=== PATIENT | female | born 1950 | race Caucasian/White ===

== ENCOUNTER 2022-12-04 10:44 | Outpatient (CLI) | payer MEDICARE, BC, SELFPAY | END 2022-12-04 10:45 | disposition home or self-care (01) | PROVIDERS: PCP Internal Medicine; Visit Provider Internal Medicine | DX: E03.9 Hypothyroidism, unspecified (principal); E66.9 Obesity, unspecified; E78.5 Hyperlipidemia, unspecified; I10 Essential (primary) hypertension | CPT/HCPCS: 80061; 84443 ==

== ENCOUNTER 2022-12-15 10:54 | Outpatient (CLI) | payer MEDICARE, BC, SELFPAY | END 2022-12-15 10:55 | disposition home or self-care (01) | PROVIDERS: PCP Internal Medicine; Visit Provider Internal Medicine Nephrology | DX: E03.9 Hypothyroidism, unspecified (principal); E78.5 Hyperlipidemia, unspecified; I10 Essential (primary) hypertension; N18.4 Chronic kidney disease, stage 4 (severe); E66.9 Obesity, unspecified; F31.9 Bipolar disorder, unspecified; N25.81 Secondary hyperparathyroidism of renal origin; N32.81 Overactive bladder | CPT/HCPCS: 80061; 80069; 82310; 82728; 83540; 83550; 83970; 84156; 87086 ==

== ENCOUNTER 2023-03-17 16:07 | Emergency (ER) | payer MEDICARE, BC, SELFPAY ==
[2023-03-17] VITALS (7 sets, daily range): BP systolic 175–181; BP diastolic 85–91; PULSE 53–71; RESP 14; TEMP 36.7; O2SAT 94–100; BMI 34.8
--- NOTE | 2023-03-17 16:18 | ED_ITS ---
HPI - Chest Pain General Time Seen by Provider: 16:18 Date Seen: 03/17/23 Chief Complaint: Chest Pain Stated Complaint: Heartburn Time Seen by Provider: 03/17/23 16:09 Source: patient and RN notes reviewed Mode of arrival: ambulatory Limitations: no limitations History of Present Illness HPI narrative: This 72-year-old female is coming in with complaint of chest discomfort that is been bothering her for couple hours now. She tried some Mylanta at home. She is on omeprazole maybe over a month now for treatment of heartburn. She states her primary doctor Dr. Naranjo stated next step would be to do endoscopy. She notes if she actually gets up and moves around it feels a little better. Does not feel pleuritic in nature. Not short of breath. She maybe feels it into her back some. It is sharp at times. She is having no difficulty swallowing or dysphagia. She has not had any regurgitant symptoms. Outside of maybe standing up and moving around, she really has not noticed that anything makes it worse or better. She denies any history of any prior coronary/cardiac or pulmonary issues. No fevers. It sounds as if her dad maybe had bypass surgery. MD complaint: chest pain Related Data Home Medications Medication Instructions Recorded Confirmed acetaminophen 500 mg capsule 500 mg PO Q6H PRN 01/24/22 02/13/23 divalproex 250 mg tablet,delayed 1,000 mg PO .hs 01/24/22 02/13/23 release (Depakote) buspirone 10 mg tablet 10 mg PO BID 12/04/22 02/13/23 quetiapine 200 mg tablet 250 mg PO .hs 02/13/23 02/13/23 Previous Rx's Medication Instructions Recorded oxybutynin chloride 5 mg 5 mg PO QDAY #90 tabs 12/04/22 tablet,extended release 24 hr atorvastatin 10 mg tablet 10 mg PO .Bedtime #90 tabs 12/05/22 levothyroxine 50 mcg tablet 50 mcg PO DAILY #90 tabs 12/05/22 polyethylene glycol 3350 17 17 g PO BID #1,020 grams 12/11/22 gram/dose oral powder amlodipine 5 mg tablet 5 mg PO DAILY #90 tabs 02/21/23 omeprazole 20 mg capsule,delayed 20 mg PO QAM #90 caps 02/26/23 release Allergies Allergy/AdvReac Type Severity Reaction Status Date / Time No Known Allergies Allergy Unverified 02/13/23 09:29 Review of Systems Status of ROS Reports: 6 or more systems reviewed and unremarkable except as noted in History and below PFSH PFS Surgical History History of repair of rectocele ?Z98.890 - Other specified postprocedural states (ICD-10) Family History Father Heart disease Pancreatic cancer Depression Sister Breast cancer Bipolar 1 disorder Brother Depression Social History What is your current living situation?: I presently have a place to live Problems where you live: no known problems In the past 12 months, utilities in danger of being shut off: no In the past 12 mos, have been you worried that your food would run out before you had money to buy more?: never true In the past 12 mos, the food you bought just didn't last and you didn't have money to buy more?: never true Smoking Status: Never smoker Do you use any of these nicotine containing products: None How often do you have a drink containing alcohol: never AUDIT-C Alcohol total score: 0 How often does anyone, including family, friends and others, physically hurt you : How often does anyone, including family, friends and others, insult or talk down to you: How often does anyone, including family, friends and others, threaten you with harm: How often does anyone, including family, friends and others, scream or curse at you: Little interest or pleasure in doing things: not at all Feeling down, depressed, or hopeless: not at all Exam Const Vital Signs, click to edit/add: Vital Signs - 24 hr 03/17/23 16:11 03/17/23 16:25 03/17/23 17:02 Temperature 98.0 F Pulse Rate 53 L Pulse Rate [Pulse Oximeter] 63 Respiratory Rate 14 14 Blood Pressure 175/85 H Blood Pressure [Right Upper Arm] 181/91 H Pulse Oximetry 98 100 97 Oxygen Delivery Method Room Air 03/17/23 17:15 03/17/23 18:00 10/07/23 18:30 Temperature Pulse Rate 62 60 71 Pulse Rate [Pulse Oximeter] Respiratory Rate Blood Pressure Blood Pressure [Right Upper Arm] Pulse Oximetry 94 94 96 Oxygen Delivery Method 03/17/23 18:45 Temperature Pulse Rate 70 Pulse Rate [Pulse Oximeter] Respiratory Rate Blood Pressure Blood Pressure [Right Upper Arm] Pulse Oximetry 95 Oxygen Delivery Method 72-year-old female is alert, interactive, no apparent distress. Able to speak in complete sentences, no tachypnea. Sclera clear, conjugate gaze. Symmetrical facial function. Neck is supple, no palpable masses, do not note any jugular venous distension. Lungs are clear, good air entry, no wheezing or crackles. CV regular rate and rhythm, no murmur, normal S1 and S2. No palpable chest wall tenderness, no reproducible chest wall tenderness. Abdomen is soft, no rebound or guarding, no organomegaly cannot reproduce any pain on palpation. Note she does point to the anterior center chest up and down the chest where she is feeling her symptoms. Note no lower extremity edema. Patient was ambulatory in the ED of her own accord. No focal neurologic exam noted. Documenting provider has reviewed patient's vital signs: yes Course Course ED Course: Reviewed with patient that outside of esophageal in GI symptoms, there muscles, lungs/pleura, cardiac structures as well as vessels in the chest. Ischemic changes, dissection, pulmonary emboli, respiratory infections as well as referred pain into the chest from esophageal or GI issues are all possibilities. We will start with a point of care troponin, reviewed with patient we should know that back within about 10-15 minutes. If that is negative, will likely give her IV Protonix and some simethicone. We do not have viscous lidocaine to make a GI cocktail. Reevaluation(s) Time of Reevaluation #1: 18:05 Reevaluation #1: Patient is feeling much better. Reviewed that we still should check a 2nd troponin which will do now. She does remain mildly hypertensive but she has chronic kidney disease. With her lipase just being very slightly elevated and the rest of her liver functions normal, having improvement with the Protonix and simethicone, do not recommend doing any CT imaging with IV contrast. Highly doubt that this is anything like dissection. We will do a repeat troponin at this time. Time of Reevaluation #2: 18:14 Reevaluation #2: Did go back and review with patient that we were going to do a CT of her abdomen pelvis if she was in agreement. She did complain of some middle to upper back pain with this and she was still feeling that somewhat. When I was reviewing her family history, saw that her dad had pancreatic cancer. With her lipase just being ever so slightly elevated, do think we really should look at her pancreas on imaging. Given her chronic kidney disease cannot do so with IV contrast but will do a noncontrast CT. Time of Reevaluation #3: 19:30 Reevaluation #3: Have reviewed with patient that there is nothing definitive on the CT. It is limited by the fact we could not do contrast but would anticipate that if she had some type pancreatic lesion causing this much symptoms that we should still see it, would expect that it might be larger. She at this time is feeling much better. We are going to have her follow up with her primary, consider getting the EGD scheduled in a further workup. At this time she did bring up to me that over the last month she has been feeling like she has been having menstrual c ramps. Did review with her that the CT of the pelvis was done but imaging of pelvic organs really is better defined by ultrasound. At this time I do not feel that this needs to be done emergently. Do ask that she talks to her primary about this at follow-up. Vital Signs Vital signs: Initial Vital Signs Temperature 98.0 F 03/17/23 16:11 Temperature Source Temporal Artery Scan 03/17/23 16:11 Pulse Rate 63 03/17/23 16:11 Pulse Rhythm Regular 03/17/23 16:11 Respiratory Rate 14 03/17/23 16:11 Blood Pressure 181/91 H 03/17/23 16:11 Blood Pressure Mean 121 H 03/17/23 16:11 Blood Pressure Position Sitting 03/17/23 16:11 Pulse Oximetry 98 03/17/23 16:11 Oxygen Delivery Method Room Air 03/17/23 16:11 Vital Signs Temperature 98.0 F 03/17/23 16:11 Pulse Rate 63 03/17/23 16:11 Respiratory Rate 14 03/17/23 16:11 Blood Pressure 181/91 H 03/17/23 16:11 Pulse Oximetry 98 03/17/23 16:11 Oxygen Delivery Method Room Air 03/17/23 16:11 Temperature 98.0 F 03/17/23 16:11 Pulse Rate 70 03/17/23 18:45 Respiratory Rate 14 03/17/23 17:02 Blood Pressure 175/85 H 03/17/23 17:02 Pulse Oximetry 95 03/17/23 18:45 Oxygen Delivery Method Room Air 03/17/23 16:11 MDM - Chest Pain Lab Data Attestation: I reviewed the patient's lab results. Labs: Lab Results 03/17/23 03/17/23 Range/Units 16:25 18:12 WBC 4.69 (4.50-11.00) K/uL RBC 4.02 (4.00-5.20) m/uL Hgb 11.9 L (12.0-16.0) gm/dL Hct 36.8 (33.0-51.0) % MCV 92 (80-100) fL MCH 30 (26-34) pg MCHC 32 (32-36) gm/dL RDW Coeff of Yaneth 14.2 (11.5-15.5) % Plt Count 162 (140-440) K/uL Neut % (Auto) 71.6 (42.0-72.0) % Lymph % (Auto) 13.6 L (20-44) % [place] % (Auto) 12.4 H (0.0-11.0) % Eos % (Auto) 1.1 (0.0-7.0) % Baso % (Auto) 0.4 (0.0-3.0) % Neut # (Auto) 3.36 (1.7-7.0) K/uL Lymph # (Auto) 0.60 L (0.90-2.90) K/uL [place] # (Auto) 0.60 (0.00-0.90) K/UL Eos # (Auto) 0.05 (0.00-0.50) K/uL Baso # (Auto) 0.02 (0.00-0.30) K/uL Abs Immat Gran (auto) 0.04 (0.00-0.30) K/uL Imm/Tot Granulo (auto) 0.9 % D-Dimer Quant (PE/DVT) 0.35 (0.00-0.50) ug/ml Sodium 141 (135-149) mmol/L Potassium 4.0 (3.6-5.1) mmol/L Chloride 107 (96-114) mmol/L Carbon Dioxide 22 (20-32) mmol/L Anion Gap 12 (7-15) mEq/L BUN 33 H (7-30) mg/dL Creatinine 2.6 H (0.5-1.5) mg/dL Estimated Creat Clear 15.01 Estimated GFR 19 ml/min Glucose 92 (60-115) mg/dL Lactate 1.0 (0.5-1.9) mmol/L Calcium 9.5 (8.4-10.6) mg/dL Magnesium 2.1 (1.5-2.6) mg/dL Total Bilirubin 0.4 (0.1-1.5) mg/dL AST 27 (12-35) U/L ALT 17 (4-35) U/L Alkaline Phosphatase 63 (40-150) U/L C-Reactive Protein 2.3 H (0.5-1.0) mg/dL NT-Pro-B Natriuret Pep 193 pg/mL Total Protein 7.8 (6.0-8.3) g/dL Albumin 4.5 (3.3-5.0) g/dL Lipase 310 H (23-300) U/L POC Troponin I 0.00 L 0.00 L (0.01-0.04) ng/ml Imaging Data Chest x-ray: Attestation: I have reviewed the pertinent imaging results. Radiologist's impression: Patient: MADISON COLEMAN Facility:?[facility] Patient ID:?[id number] Site Patient ID:?[id number]. Site :?[id number] Study:?XRay Chest PORTABLE-03/17/2023 4:45:50 PM Ordering Physician:?Chaim Webb Final Report: INDICATION: Chest pain. COMPARISON: None. TECHNIQUE: Portable AP chest. FINDINGS: Elevated diaphragms bilateral with underlying dilated bowel. Normal size cardiac silhouette. Clear lung jeffrey. IMPRESSION: 1. Elevated diaphragms with underlying dilated bowel. 2. No acute pathology with on the chest radiograph. Dictated by Wilton Barajas MD @ 03/17/2023 5:01:59 PM (Electronic Signature) CT scan - abdomen: Attestation: I have reviewed the pertinent imaging results. Radiologist's impression: Patient: MADISON COLEMAN Facility:?[facility] Patient ID:?[id number] :?1950 Study:?CT Abdomen/Pelvis W/O-03/17/2023 6:33:16 PM Ordering Physician:Margaret Webb Final Report: INDICATION: Epigastric/chest pain, radiates into back. COMPARISON: None available TECHNIQUE: CT of the abdomen and pelvis without intravenous contrast per routine renal stone protocol. FINDINGS: No renal or ureteral calculi. No hydronephrosis or ureterectasis. No urinary bladder calculi. Small left renal lesions. The small renal cyst. Non-contrast examination significantly limits evaluation of solid organs and intravascular structures. Non cirrhotic appearing liver. Small liver cysts and low-attenuation lesions that are too small to characterize. No gallbladder distention. No splenomegaly. No suspicious peripancreatic fluid collection. Adrenal glands appear unremarkable. No bowel obstruction. No obvious abnormality involving the urinary bladder, uterus or the adnexa. No free air or free fluid. No suspicious incidental adenopathy. Coronary artery calcifications. Linear opacities in the lung bases represent minor atelectasis. No pleural effusion. IMPRESSION: No renal or ureteral calculi. No hydronephrosis. Please note that all CT scans at this facility use dose modulation, iterative reconstruction, and/or weight-based dosing when appropriate to reduce radiation dose to as low as reasonably achievable. Dictated by Miguel Sullivan MD @ 03/17/2023 7:20:50 PM (Electronic Signature) ECG Data Attestation: I personally reviewed and interpreted this ECG as follows: (Sinus rhythm with sinus arrhythmia, 60 beats per minute. Bifascicular block. LVH by voltage criteria. QT corrected 444 milliseconds.) ECG interpretation date: 03/17/23 Discharge Plan Discharge Clinical Impression: GERD (gastroesophageal reflux disease), Chest pain Patient Disposition: Home, Self-Care Condition: Stable Instructions: Chest Pain (ED), GERD (Gastroesophageal Reflux Disease) (ED), Noncardiac Chest Pain (ED) Additional Instructions: Increase your omeprazole to 40 mg daily, this will be [address] Naranjo tomorrow in see if you can get the EGD scheduled. I would also like you to get a follow-up appointment with her within the next week for re-evaluation. If at any point your pain is significantly worsening, have new or concerning symptoms in the interim, please seek re-evaluation. Activity Level: Activity as Tolerated Prescriptions: No Action divalproex [Depakote] 250 mg tablet,delayed release (DR/EC) 1,000 mg PO .hs acetaminophen 500 mg capsule 500 mg PO Q6H PRN quetiapine 200 mg tablet 250 mg PO .hs buspirone 10 mg tablet 10 mg PO BID oxybutynin chloride 5 mg tablet extended release 24hr 5 mg PO QDAY Qty: 90 3RF levothyroxine 50 mcg tablet 50 mcg PO DAILY Qty: 90 3RF atorvastatin 10 mg tablet 10 mg PO .Bedtime Qty: 90 3RF polyethylene glycol 3350 17 gram/dose powder 17 g PO BID Qty: 1020 11RF amlodipine 5 mg tablet 5 mg PO DAILY Qty: 90 2RF omeprazole 20 mg capsule,delayed release(DR/EC) 20 mg PO QAM Qty: 90 2RF Follow Up/Referrals: Skylar Naranjo MD [Primary Care Provider] - Stand Alone Forms: [facility] Info Instructions
--- NOTE | 2023-03-17 16:32 | CRLHL7_ITS ---
For Patients: As a result of the Cures Act, medical imaging exams and procedure reports are released immediately into your electronic medical record. You may view this report before your referring provider. If you have questions, please contact your health care provider. INDICATION: Chest pain. COMPARISON: None. TECHNIQUE: Portable AP chest. FINDINGS: Elevated diaphragms bilateral with underlying dilated bowel. Normal size cardiac silhouette. Clear lung jeffrey. IMPRESSION: 1. Elevated diaphragms with underlying dilated bowel. 2. No acute pathology with on the chest radiograph. Dictated by Wilton Barajas MD @ 03/17/2023 5:01:59 PM (Electronically Signed)
[2023-03-17 16:50] LABS: Basophils Absolute Auto 0.02 K/uL (0.00-0.30); Basophils Percent Auto 0.4 % (0.0-3.0); Eosinophils Absolute Auto 0.05 K/uL (0.00-0.50); Eosinophils Percent Auto 1.1 % (0.0-7.0); Hematocrit 36.8 % (33.0-51.0); Hemoglobin* 11.9 gm/dL (12.0-16.0); Immature Granulocytes Abs Auto 0.04 K/uL (0.00-0.30); Immature Granulocytes Pct Auto 0.9 %; Lymphocytes Percent Auto 13.6 % (20-44); Mean Corpuscular HGB Conc 32 gm/dL (32-36); Mean Corpuscular Hemoglobin 30 pg (26-34); Mean Corpuscular Volume 92 fL (80-100); Monocytes Percent Auto 12.4 % (0.0-11.0); Neutrophils Absolute Auto 3.36 K/uL (1.7-7.0); Neutrophils Percent Auto 71.6 % (42.0-72.0); Platelet Count* 162 K/uL (140-440); RDW Coefficient of Variation % 14.2 % (11.5-15.5); Red Blood Count 4.02 m/uL (4.00-5.20); White Blood Count* 4.69 K/uL (4.50-11.00)
[2023-03-17 16:54] LABS: Slide Review Reflex No
[2023-03-17 16:59] LABS: Albumin* 4.5 g/dL (3.3-5.0); Chloride* 107 mmol/L (96-114)
[2023-03-17 17:00] LABS: Sodium* 141 mmol/L (135-149)
[2023-03-17 17:02] LABS: Bilirubin Total* 0.4 mg/dL (0.1-1.5); Creatinine* 2.6 mg/dL (0.5-1.5); Est. Creatinine Clearance* 15.01; Estimated Glomerular Filt Rate 19 ml/min
[2023-03-17] MEDS: PANTOPRAZOLE SODIUM 40 MG INJ IVP (17:02)
[2023-03-17 17:03] LABS: Alanine Aminotransferase* 17 U/L (4-35); Alkaline Phosphatase* 63 U/L (40-150); Anion Gap 12 mEq/L (7-15); Aspartate Amino Transferase* 27 U/L (12-35); Blood Urea Nitrogen* 33 mg/dL (7-30); Calcium* 9.5 mg/dL (8.4-10.6); Carbon Dioxide* 22 mmol/L (20-32); Glucose* 92 mg/dL (60-115); Lipase* 310 U/L (23-300); Magnesium* 2.1 mg/dL (1.5-2.6); Total Protein* 7.8 g/dL (6.0-8.3)
[2023-03-17 17:05] LABS: C Reactive Protein* 2.3 mg/dL (0.5-1.0)
[2023-03-17 17:10] LABS: D Dimer Quantitative* 0.35 ug/ml (0.00-0.50)
[2023-03-17 17:13] LABS: NT Pro B Type NatriureticPept* 193 pg/mL
[2023-03-17] MEDS: SIMETHICONE 80 MG TAB.CHEW PO (17:17)
--- NOTE | 2023-03-17 18:11 | CRLHL7_ITS ---
For Patients: As a result of the Century Cures Act, medical imaging exams and procedure reports are released immediately into your electronic medical record. You may view this report before your referring provider. If you have questions, please contact your health care provider. INDICATION: Epigastric/chest pain, radiates into back. COMPARISON: None available TECHNIQUE: CT of the abdomen and pelvis without intravenous contrast per routine renal stone protocol. FINDINGS: No renal or ureteral calculi. No hydronephrosis or ureterectasis. No urinary bladder calculi. Small left renal lesions. The small renal cyst. Non-contrast examination significantly limits evaluation of solid organs and intravascular structures. Non cirrhotic appearing liver. Small liver cysts and low-attenuation lesions that are too small to characterize. No gallbladder distention. No splenomegaly. No suspicious peripancreatic fluid collection. Adrenal glands appear unremarkable. No bowel obstruction. No obvious abnormality involving the urinary bladder, uterus or the adnexa. No free air or free fluid. No suspicious incidental adenopathy. Coronary artery calcifications. Linear opacities in the lung bases represent minor atelectasis. No pleural effusion. IMPRESSION: No renal or ureteral calculi. No hydronephrosis. Please note that all CT scans at this facility use dose modulation, iterative reconstruction, and/or weight-based dosing when appropriate to reduce radiation dose to as low as reasonably achievable. Dictated by Miguel Sullivan MD @ 03/17/2023 7:20:50 PM (Electronically Signed)
--- NOTE | 2023-03-17 18:59 | ED.NURSE ---
Report given KENDAL Dickson.
== END 2023-03-17 19:46 | disposition home or self-care (01) ==
PROVIDERS: Emergency Provider Family Medicine; PCP Internal Medicine
DX: R07.9 Chest pain, unspecified (principal); K21.9 Gastro-esophageal reflux disease without esophagitis
CPT/HCPCS: 36415; 71045; 74176; 80053; 83605; 83690; 83735; 83880; 84484; 85025; 85379; 86140; 93005; 94761; 96374; 99284; 99285; A9270; C9113

== ENCOUNTER 2023-04-02 10:33 | Outpatient (CLI) | payer MEDICARE, BC, SELFPAY ==
--- NOTE | 2023-04-02 12:04 | W.ANESCHARGE ---
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
== END 2023-04-02 10:34 | disposition home or self-care (01) ==
LOC: OP CLINIC 10:33
PROVIDERS: PCP Internal Medicine; Visit Provider Internal Medicine
DX: R12 Heartburn (principal)
CPT/HCPCS: 00731; 43239; 88305; 99100; J2704

== ENCOUNTER 2023-08-21 08:51 | Outpatient (CLI) | payer MEDICARE, BC, SELFPAY | END 2023-08-21 08:52 | disposition home or self-care (01) | LOC: NFLDREF 08-22 07:19 | PROVIDERS: PCP Internal Medicine; Referring Provider Internal Medicine; Visit Provider Internal Medicine Nephrology | DX: E78.5 Hyperlipidemia, unspecified (principal); I12.9 Hypertensive chronic kidney disease with stage 1 through stage 4 chronic kidney disease, or unspecified chronic kidney disease; N18.4 Chronic kidney disease, stage 4 (severe); N25.81 Secondary hyperparathyroidism of renal origin | CPT/HCPCS: 80061; 80069; 82043; 82306; 82310; 82570; 82728; 83540; 83550; 83970; 84450; 84460; 84550 ==

== ENCOUNTER 2023-12-04 08:50 | Outpatient (CLI) | payer MEDICARE, BC, SELFPAY ==
--- OUTSIDE RECORDS SUMMARY | 2023-12-07 08:44 | XMS_ITS | Clinical Summary ---
Author Organization [facility] Address [address] [place] [address] Care Team Providers Care Casting Operator Helper Name Role Phone Elsewhere, Pcp Primary Care Provider Unavailabl e Source Comments Patient records contain information from all sites at [facility]. For routine questions regarding patient records, call [phone] during business hours, M-F 8:00 AM - 5:00 PM Central Time. Record requests for emergency care only can be directed to [phone] at any time.[facility] Allergies Active Allergy Reactions Criticality Noted Date Comments No Known Allergies Other (see comments) 010 Cerner listed no reactions Medications Medication Sig Dispensed Refills Start Date End Date Status MULTIVITAMIN ORAL Take 1 tablet by mouth daily. 10/20/2009 Active acetaminophen (TYLENOL EXTRA STRENGTH) 500 mg tablet Take 1 tablet by mouth as needed. 05/16/2017 Active amLODIPine (NORVASC) 5 mg tabletIndications:Hy pertension And Chronic Kidney Disease Stage 4 Take 1 tablet (5 mg total) by mouth daily. 90 tablet 3 06/08/2021 Active QUEtiapine (SEROquel) 100 mg tabletIndications:Bi polar I Disorder (HCC) TAKE 2 TABLETS (200 MG) BY MOUTH AT BEDTIME. 180 tablet 08/12/2021 Active atorvastatin (LIPITOR) 10 mg tabletIndications:Hy percholesterolemia TAKE ONE TABLET BY MOUTH EVERY DAY 90 tablet 3 08/31/2021 Active divalproex (DEPAKOTE ER) 250 mg 24 hr tabletIndications:Bi polar I Disorder (HCC) TAKE 4 TABLETS (1,000 MG) BY MOUTH DAILY. 360 tablet 3 08/31/2021 Active levothyroxine (SYNTHROID, LEVOTHROID) 50 mcg tabletIndications:Hy pothyroidism Primary TAKE ONE TABLET BY MOUTH EVERY DAY 90 tablet 3 08/31/2021 Active polyethylene glycol (MIRALAX) 17 gram/dose oral powderIndications:Co nstipation MIX 17GMS IN 80Z OF LIQUID AND DRINK TWICE DAILY 1530 g 3 10/10/2021 Active Active Problems Problem Noted Date Diagnosed Date Obesity Body Mass Index 30-39.9 Adult 05/26/2021 Chronic Kidney Disease Stage 4 Glomerular Filtration Rate 15-29 05/26/2020 Hyperparathyroidism Renal Secondary 05/26/2020 Hypercholesterolemia 04/21/2019 Anemia Of Chronic Renal Disease 10/23/2018 Constipation 04/10/2018 Hypertension And Chronic Kidney Disease Stage 4 05/30/2017 Last Assessment & Plan: Referral to Nephrology 04/23/2018 Hypothyroidism Primary 05/30/2017 Bipolar I Disorder 05/16/2017 Resolved Problems Problem Noted Date Diagnosed Date Resolved Date Atrophy Vagina Due To Estrogen Deficiency 12/26/2018 04/22/2019 Fatigue 05/30/2017 04/10/2018 Bipolar Disorder 08/10/2016 04/10/2018 Overview: Bipolar Disorder NOS Anxiety Generalized Disorder 07/19/2016 04/17/2018 Chronic Kidney Disease Stage 3 Glomerular Filtration Rate 30 To 59 02/17/2016 04/22/2019 Overview: Chronic Renal Failure Stage III GFR 30-59 Hypertension 10/21/2009 05/30/2017 Overview: HTN [Hypertension] Immunizations Name Administration Dates Next Due DT, Pediatric 11/24/2003 Influenza high dose QV(65 ye ars or older) (PF) 03/11/2021,02/12/2020 Influenza, Unspecified 03/29/2016,2012,03/24/2010,2008,04/26/2005 PCV13 11/04/2014 PPSV23 10/31/2016 RZV (SHINGRIX) 02/12/2020,04/15/2019 Td (Adult), adsorbed 11/24/2003 Tdap 11/04/2014 influenza high dose (65 year s or older) (PF) 04/15/2019,04/02/2018 Family History Medical History Relation Name Comments Heart disease Father Pancreatic cancer Father Breast cancer Sister Relation Name Status Comments Father (Age 89) pancreatic cancer Mother (Age 90) natural Sister Social History Tobacco Use Types Packs/Day Years Used Date Smoking Tobacco: Never Smokeless Tobacco: Never Alcohol Use Standard Drinks/Week Comments Yes 1 (1 standard drink = 0.6 oz pur e alcohol) Humiliation, Afraid, Rape, and Kick questionnair e Answer Date Recorded Within the last year, have y ou been afraid of your partner or ex-partner? No 06/06/2021 Within the last year, have y ou been humiliated or emotionally abused in other ways by your partner or ex-partner? No Within the last year, have y ou been kicked, hit, slapped, or otherwise physically hurt by your partner or ex-partner? No 06/06/2021 Within the last year, have y ou been raped or forced to have any kind of sexual activity by your partner or ex-partner? No 06/06/2021 Social Connection and Isolat ion Panel [NHANES] Answer Date Recorded In a typical week, how many times do you talk on the phone with family, friends, or neighbors? More than three times a week 06/06/2021 How often do you get togethe r with friends or relatives? More than three times a week 06/06/2021 How often do you attend chur ch or adventist services? 1 to 4 times per year 06/06/2021 Do you belong to any clubs o r organizations such as hoahaoism groups, unions, fraternal or athletic groups, or school groups? Yes 06/06/2021 How often do you attend meet ings of the clubs or organizations you belong to? 1 to 4 times per year 06/06/2021 Are you , , di vorced, , never , or living with a partner? 06/06/2021 AUDIT-C Answer Date Recorded Q1: How often do you have a drink containing alc ohol? 2-4 times a month 06/06/2021 Q2: How many drinks containi ng alcohol do you have on a typical day when you are drinking? 1 or 2 06/06/2021 Q3: How often do you have si x or more drinks on one occasion? Never 06/06/2021 Overall Financial Resource Strain (CARDIA) Answe r Date Recorded How hard is it for you to pa y for the very basics like food, housing, medical care, and heating? Not hard at all 06/06/2021 PHQ-2 Answer Date Recorded PHQ-2 Score 0 05/26/2021 [facility] - Occupational Stress Questionnaire Answer Date Recorded Do you feel stress - tense, restless, nervous, or anxious, or unable to sleep at night because your mind is troubled all the time - these days? Not at all 06/06/2021 Exercise Vital Sign Answer Date Recorde d On average, how many days pe r week do you engage in moderate to strenuous exercise (like a brisk walk)? 3 days 06/06/2021 On average, how many minutes do you engage in exercise at this level? 20 min 06/06/2021 Hunger Vital Sign Answer Date Recorded Within the past 12 months, y ou worried that your food would run out before you got the money to buy more. Never true 06/06/20 21 Within the past 12 months, t he food you bought just didn't last and you didn't have money to get more. Never true 06/06/2021 PRAPARE - Transportation Answer Date Re corded In the past 12 months, has l ack of transportation kept you from medical appointments or from getting medications? No 05/12 In the past 12 months, has l ack of transportation kept you from meetings, work, or from getting things needed for daily living? No 06/06/2021 Housing Stability Vital Sign Answer Elias e Recorded In the last 12 months, was t here a time when you were not able to pay the mortgage or rent on time? No 06/06/2021 In the last 12 months, how many places have you lived? 1 06/06/2021 In the last 12 months, was t here a time when you did not have a steady place to sleep or slept in a mcfp (including now)? No 06/06/2021 Nutrition Answer Date Recorded Nutrition: EVOO Fat Source No 06/06 On average, how many serving s of fruits and vegetables do you eat per day (serving size is equal to 1 cup or approximately the size of a tennis ball)? 6-7 06/06/2021 Dental Answer Date Recorded Dental: Regular Dentist Yes 11/29/19 Employment Answer Date Recorded Employment status Retired 06/06/2021 Education Answer Date Recorded What is the highest level of school you have completed or the highest degree you have received? Master's degree (e.g., MA, MS, Stacey, MEd, RECRUITMENT INTERN, MARTHA) 04/18/2019 Sex and Gender Information Value Date Recorded Sex Assigned at Female 06/06/2021 10:52 AM OIL DEVELOPER Gender Identity Female 05/30/2017 9:25 AM OIL DEVELOPER Sexual Orientation Straight 05/30/2017 9: 25 AM OIL DEVELOPER Last Filed Vital Signs Vital Sign Reading Time Taken Comments Blood Pressure 138/88 08/27/2023 1:31 PM CDT Pulse 76 08/27/2023 1:31 PM CDT Temperature 36.5 ??C (97.7 ??F) 06/09/2021 9:41 AM CS T Respiratory Rate 16 05/26/2021 10:37 AM OIL DEVELOPER Oxygen Saturation - - Inhaled Oxygen Concentration - - Weight 89.4 kg (197 lb 1.5 oz) 08/27/2023 1:31 P M CDT Height 157 cm (5' 1.81) 08/27/2023 1:31 PM CDT Body Mass Index 36.27 08/27/2023 1:31 PM CDT Plan of Treatment Health Maintenance Due Date Last Done Comments CT Colonography 1950 Hepatitis C Screening 1950 Colonoscopy 11/27/2019 11/26/2014, 02/27/2003 Mammogram 05/27/2021 05/27/2020, 04/11, 04/23/2018, Additional history exists Thyroid Stimulating Hormone (TSH) test for thyroid function 04/26/2022 04/26/2021, 05/24/2020, 04/21/2019, Additional history exists Cologuard 06/05/2023 06/05/2020, 06/01/2020 Colorectal Cancer Surveillance 06/05/2023 Depression Screening (Annual PHQ-2) 06/11/2023 Fall Risk Screen (Annual) 06/11/2023 Office Visit for Blood Press ure Check / Re-check 08/26/2024 08/27/2023 DTaP,Tdap,and Td Vaccines (4 - Td or Tdap) 11/04/2024 11/04/2014, 11/24/2003, 11/24/2003 Fasting Glucose for Diabetes Screening 08/22/2025 08/22/2022, 06/08/2021, 04/26/2021, Additional history exists Lipid (Cholesterol) Screening 12/19/2027, 08/22/2022, 12/19/2021, Additional history exists Pneumococcal vaccine (65+ years) Completed 11/01/19 17, 11/04/2014 Zoster Vaccines Completed 02/12/2020, 04/15/2019 Influenza Vaccine Completed 03/08/2023, , 03/11/2021, Additional history exists COVID-19 Vaccine Completed 12/06/2023, 11/2022, 03/16/2023, Additional history exists Procedures Procedure Name Priority Date/Time Associated Diagnosis Comments EXTI LIPID PANEL W REFLEX MEASURED LDL Routine 12/18/2022 9:10 AM CDT RENAL FUNCTION PANEL, S Routine 08/22/2022 9:50 AM CDT Hypertension And Chronic Kidney Disease Stage 4 (HCC) Anemia Of Chronic Renal Disease Hyperparathyroidi sm Renal Secondary (HCC) THYROID-STIMULATI NG HORMONE-SENSITIVE (S-TSH) Routine 04/26/2021 10:11 AM OIL DEVELOPER Hypothyroidism COLOGUARD Routine 06/01/2020 9:30 AM OIL DEVELOPER Screening Cancer Colon BI BREAST SCREENING BILATERAL RAD - Routine (most inpatients and all outpatients) 05/27/2020 9:50 AM OIL DEVELOPER Screening Mammogram Breast Cancer from Last 3 Months or Most Recently Relevant to Health Maintenance Results * (ABNORMAL) Renal Function Panel (08/22/2022 9:50 AM CDT) Potassium, P 5.0 3.6 - 5.2 mmol/L 08/22/2022 11:37 AM CDT OWAT Sodium, P 142 135 - 145 mmol/L 08/22/2022 11:37 AM CDT OWAT Chloride, P 105 98 - 107 mmol/L 08/22/2022 11:37 AM CDT OWAT Bicarbonate, P 24 22 - 29 mmol/L 08/22/2022 11:37 AM CDT OWAT Anion Gap, P 13 7 - 15 08/22/2022 11:37 AM CDT OWAT BUN (Blood Urea Nitrogen), P 31(H) 6 - 21 mg/dL 08/22/2022 11:37 AM CDT OWAT Creatinine 2.13(H) 0.59 - 1.04 mg/dL 08/22/2022 11:37 AM CDT OWAT Estimated GFR (eGFR) 24(L) >=60 mL/min/BSA 08/22/2022 11:37 AM CDT OWAT Comment: Estimated GFR calculated using the 2020 CKD_EPI creatinine equation. Calcium, Total, P 10.1 8.8 - 10.2 mg/dL 08/22/2022 11:37 AM CDT OWAT Glucose, P 93 70 - 140 mg/dL 08/22/2022 11:37 AM CDT OWAT Albumin, P 4.3 3.5 - 5.0 g/dL 08/22/2022 11:37 AM CDT OWAT Phosphorus (Inorganic), P 2.9 2.5 - 4.5 mg/dL 08/22/2022 4:08 PM CDT AUST Blood (Blood, Venous) 08/22/2022 9:50 AM CDT 08/22/2022 11:07 AM CDT [facility] - 08/22/2022 4:08 PM CDT Specimen Information: Specimen ID: [id number] Specimen Type: Blood Specimen Collection Start Date: 08/22/2022 ??9:50 AM Specimen Received Date: 08/22/2022 11:07 AM Specimen ID: [id number] Specimen Type: Blood Specimen Collection Start Date: 08/22/2022 ??9:50 AM Specimen Received Date: 08/22/2022 ??3:50 PM Jairo Hutton Jr.O. LAB BLOOD AD D-ON [facility] [address] [place] [address], [facility] OWAT [facility] [place] [address] [place] [address] A[facility] [address] [place] [address] * S-TSH (Thyroid-Stimulating Hormone - Sensitive) (04/26/2021 10:11 AM OIL DEVELOPER) TSH, Sensitive 1.6 0.3 - 4.2 mIU/L 04/26/2021 2:09 PM OIL DEVELOPER OWAT Blood (Blood, Venous) 04/26/2021 10:11 AM OIL DEVELOPER 04/26/2021 1:02 PM OIL DEVELOPER Carey Arriaga APRN C.N.P., R.N. LAB BL OOD ADD-ON [facility] [address] [place] [address], [facility] OWAT [facility] [place] [address] [place] [address] * Cologuard (06/01/2020 9:30 AM OIL DEVELOPER) Result Negative Not Applicable 06/05/2020 8:18 AM OIL DEVELOPER EXLI Comment: A negative result indicates a low likelihood that a colorectal cancer (CRC) or an advanced adenoma (adenomatous polyps with more advanced pre-malignant features) is present. The chance that a person with a negative Cologuard test has a colorectal cancer is less than 1 in 1500 (negative predictive value >99.9%) or has an advanced adenoma is less than 5.3% (negative predictive value 94.7%). These data are based on a prospective cross-sectional screening study of 10,000 individuals at average risk for colorectal cancer who were screened with both Cologuard and colonoscopy. (Laura Capone, N Engl J Med 2014;370(14):5603-5170) The normal value (reference range) for this assay is negative. COLOGUARD RE-SCREENING RECOMMENDATION: Periodic routine colorectal cancer screening is an important part of preventive healthcare for asymptomatic persons at average risk for colorectal cancer. Following a negative Cologuard result, the British Cancer Society and U.S. Multi-Society Task Force screening guidelines recommend a Cologuard re-screening interval of 3 years. References: British Cancer Society (ACS). Colorectal cancer prevention and early detection. [place], [place]: British Cancer Society; [updated 2015Oct 02]. https://www.cancer.org/cancer/tzxhp-dlcttf-ompiet/detection- diagnosis-staging/acs-recommendations.html. Accessed February 08, 2018; Garrison DK, Hayden MCDUFFIE, Rick EdmondK, Colorectal Cancer Screening: Recommendations for Physicians and Patients from the U.S. Multi-Society Task Force on Colorectal Cancer Screening, Am J Gastroenterology 2017; 112:7143-1047. TEST TYPE: Composite algorithmic analysis of stool DNA-biomarkers with hemoglobin immunoassay. ??Quantitative values of individual biomarkers are not reportable and are not associated with individual biomarker result reference ranges. PRECAUTIONS AND LIMITATIONS: Cologuard is intended for colorectal cancer screening of adults of either sex, 45 years or older, who are at average-risk for colorectal cancer (CRC). Cologuard has been approved for use by the U.S. FDA. Cologuard may produce a false negative or false positive result. A negative Cologuard test result does not guarantee the absence of CRC or advanced adenoma (pre-cancer). Patients with a negative Cologuard test result should be advised to continue participating in a colorectal cancer screening program. The screening interval for Cologuard is currently recommended at an interval of every 3 years by the [employer] Cancer Society and U.S. Multi-Society Task Force. A false positive result occurs when Cologuard produces a positive result, even though a colonoscopy may not find colorectal cancer or precancerous polyps. The performance of Cologuard has been established in a cross sectional study (i.e., single point in time) of average-risk adults aged 50-84. Cologuard performance in patients ages 45 to 49 years was estimated by sub-group analysis of near-age groups. Cologuard performance data in a 10,000 patient pivotal study using colonoscopy as the reference method can be accessed at the following location: www.[employer])/results. Additional description of the Cologuard test process, warnings and precautions can be found at www.cologuardtest.com. Rx only. Stool (Stool) 06/01/2020 9:3 0 AM OIL DEVELOPER 06/02/2020 9:01 AM OIL DEVELOPER Miryam Umana APRN.N.P., R.N. LAB [facility] DY FLUIDS AND STOOLS ORDERABLES [employer] [address] [place] [address] EXLI [employer] [address] [facility], [address] [place] [address] * BI Breast Screening Bilateral (05/27/2020 9:50 AM OIL DEVELOPER) Anatomical Region Laterality Modality Breast, Breast Imaging RST L OS, Breast Imaging ARZ LOS, Breast Imaging FLA LOS Bilateral Mammography 05/27/2020 9:52 AM OIL DEVELOPER Impressions 05/27/2020 9:53 AM OIL DEVELOPER Negative. RECOMMENDATION: ??Annual Screening Mammogram ASSESSMENT: ??BI-RADS: 1: Negative. Narrative 05/27/2020 9:53 AM OIL DEVELOPER EXAM: ??BI BREAST SCREENING BILATERAL Current study was evaluated with a Computer Aided Detection (CAD) system. INDICATION: ??Screening mammogram. COMPARISON: ??Prior exam(s) were available and reviewed for comparison. DENSITY: ??c. The breast(s) are heterogeneously dense, which may obscure small masses. FINDINGS: ??No mammographic findings of malignancy. Procedure Note Brian Orellana M.D. - 05/27/2020 EXAM: BI BREAST SCREENING BILATERAL Current study was evaluated with a Computer Aided Detection (CAD) system. INDICATION: Screening mammogram. COMPARISON: Prior exam(s) were available and reviewed for comparison. DENSITY: c. The breast(s) are heterogeneously dense, which may obscuresmall masses. FINDINGS: No mammographic findings of malignancy. IMPRESSION: Negative. RECOMMENDATION: Annual Screening Mammogram ASSESSMENT: BI-RADS: 1: Negative. Miryam Umana APRN.N.P., R.N. IMG BI PROCEDURES from Last 3 Months or Most Recently Relevant to Health Maintenance Advance Directives For more information, please contact: [phone] Documents on File Type Date Recorded Patient Nurse Staff Expl anation Advance Directives 12/01/2013 12:00 AM Leg acy document. See document viewer. Care Teams Casting Operator Helper Relationship Specialty Start Date End Date Elsewhere, Pcp PCP - General Internal Medicine 04/12/22
--- OUTSIDE RECORDS SUMMARY | 2023-12-07 08:44 | XMS_ITS | Clinical Summary ---
Author Organization [facility] Address [place], [place] [address] Care Team Providers Care Surface Grinder Name Role Phone Skylar Naranjo MD Primary Care Provider [phone] Allergies No known active allergies Medications Medication Sig Dispensed Refills Start Date End Date Status polyethylene glycoL (MIRALAX) 17 gram/dose powder 17 g. Taking twice daily 04/12/2017 Active levothyroxine (SYNTHROID) 50 mcg tablet Take 50 mcg by mouth one time. 08/27/2019 Active atorvastatin (LIPITOR) 10 mg tablet Take 10 mg by mouth once daily. 06/30/2019 Active amLODIPine (NORVASC) 5 mg tablet Take 5 mg by mouth once daily. 11/28/2021 Active medication order composer One a day- Women's over 50 multivitamin once daily 0 11/15/2022 Active oxybutynin XL (DITROPAN XL) 5 mg CR tablet TAKE ONE TABLET(5MG) BY MOUTH EVERY DAY 12/04/2022 Active omeprazole (PRILOSEC) 20 mg Delayed-Release capsule Take 20 mg by mouth once daily before a meal. 01/25/2023 Active busPIRone (BUSPAR) 10 mg tabletIndications: Social anxiety disorder 1 tablet twice a day 180 Tablet 1 07/04/2023 Active divalproex (Depakote ER) 250 mg Extended-Release tabletIndications: Bipolar 1 disorder (HC) Take 4 Tablets (1,000 mg) by mouth at bedtime. 360 Tablet 1 07/04/2023 Active QUEtiapine (SEROQUEL) 200 mg tabletIndications: Bipolar 1 disorder (HC) Take 2 Tablets (400 mg) by mouth at bedtime. 180 Tablet 1 07/04/2023 Active Active Problems Problem Noted Date Diagnosed Date Obesity with body mass index 30 or greater 05/2611/15/2022 Hyperparathyroidism due to renal insufficiency 1 07/27/2019 11/15/2022 Hyperlipidemia 04/21/2019 11/15/2022 Anemia of chronic renal failure 10/23/2018 11/15/2022 Constipation 04/10/2018 11/15/2022 Primary hypothyroidism 05/30/2017 Hypertensive kidney disease, stage IV 05/30/2017 11/15/2022 Overview: Last Assessment & Plan: Referral to Nephrology 04/23/2018 Essential hypertension 08/29/2008 Overactive bladder 08/29/2008 Menopause 08/29/2008 Bipolar 1 disorder 12/09/2003 Overview: Bipolar I Dis NOS Encounters Date Type Department Care Team Description 11/21/2023 9:00 AM CDT Office Visit [facility] [address] [place] [address] Ruma Peña, PhD, LP Individual Therapy 11/20/2023 Travel 10/17/2023 9:00 AM CDT Office Visit [facility] [address] [place] [address] Ruma Peña, PhD, LP Individual Therapy 10/16/2023 Travel 09/19/2023 9:00 AM CDT Office Visit [facility] [address] [place] [address] Ruma Peña, PhD, LP Individual Therapy 09/19/2023 Travel from Last 3 Months Immunizations Name Administration Dates Next Due COVID-19 vaccine ([employer] 30mcg/0.3mL) DHARMESH KINNEY 03/17/2021,08/31/2020,08/10/2020 DT (Age < 7 years) 11/24/2003 Influenza Virus, Unspecified 03/29/2016, 06/19/2012,03/24/2010,2008,04/26/2005,04/26/2005 Influenza, High-dose Inactivated 019,04/05/2018,04/02/2018,2017 Influenza, High-dose Quadriv alent Inactivated 04/25/2022,03/11/2021,02/12/2020 Influenza, IIV3 (Age >=3 years) 06/19/2012 Pneumococcal Poly,23-Valent (Pneumovax) 10/31/2016 Pneumococcal conj 13-Valent (Prevnar 13) 11/04/2014 Td (Age >=7 Years) 11/24/2003 Tdap 11/04/2014 Zoster (Shingrix-RZV, recombinant) 02/12/2020, Family History Medical History Relation Name Comments Heart Disease Father Relation Name Status Comments Father Social History Tobacco Use Types Packs/Day Years Used Date Smoking Tobacco: Never Smokeless Tobacco: Never Tobacco Cessation:Counseling Given: Yes Alcohol Use Standard Drinks/Week Comments Yes 0 (1 standard drink = 0.6 oz pure alcohol) socially, few times a month 05-02-23 PHQ-2 Answer Date Recorded PHQ-2 TOTAL SCORE 0 11/20/2023 Social Connections Answer Date Recorded Frequency of Communication with Friends and Fami ly Not on file 11/15/2022 Alcohol Use Answer Date Recorded How often do you have a drink containing alcohol ? 2 05/02/2023 Average Number of Drinks Not on file 023 Frequency of Binge Drinking Not on file 04/12 Sex and Gender Information Value Date Recorded Sex Assigned at Not on file Gender Identity Not on file Sexual Orientation Not on file Obstetrics History Last Filed Vital Signs Vital Sign Reading Time Taken Comments Blood Pressure 122/65 07/04/2023 8:19 AM FURNACE BRAZER Pulse 92 07/04/2023 8:19 AM FURNACE BRAZER Temperature 36.7 ??C (98 ??F) 11/26/2014 9:5 5 AM CDT Respiratory Rate 16 11/26/2014 12:3 0 PM CDT Oxygen Saturation 97% 11/19/2017 10: 54 AM CDT Inhaled Oxygen Concentration - - Weight 92.1 kg (203 lb 1.6 oz) 07/04/2023 8:19 AM FURNACE BRAZER Had winter coat on, did not want to recheck weight without coat on. Height 157.5 cm (5' 2) 03/24/2019 10:1 0 AM CDT Body Mass Index 37.15 03/24/2019 10:10 AM CDT Plan of Treatment Upcoming Encounters Date Type Department Care Team (Late st Contact Info) Description 12/26/2023 8:15 AM CDT Office Visit [facility] [address] [place] [address] Ruma Peña, PhD, LP [address] [place] [address] 12/31/2023 9:45 AM CDT Office Visit [facility] [address] [place] [address] Stacia Osborne MD [address] [place] [address] 01/23/2024 9:00 AM CDT Office Visit [facility] [address] [place] [phone] Ruma Peña, PhD, LP [address] [place] [address] 02/20/2024 9:00 AM CDT Office Visit [facility] [address] [place] [phone] Ruma Peña, PhD, LP [address] [place] [address] 03/19/2024 9:00 AM CDT Office Visit [facility] [address] [place] [phone] Ruma Peña, PhD, LP [address] [place] [address] Health Maintenance Due Date Last Done Comments Hepatitis C screening for ag e 18-79 1966 Colonoscopy through age 75 1993 DEXA/DXA scan for age 65+ 2013 Medicare Wellness for age 65+ 2013 BMI (ht and wt on same day) for age 18+ 03/24/2020 03/24/2019 COVID-19 vaccine series (2022- season) 2023 03/16/2023, 04/25/2022, 03/17/2021, Additional history exists Influenza for age 65+ 02/10/2024 04/25/2022 , 03/11/2021, 02/12/2020, Additional history exists Tetanus booster 11/04/2024 11/04/2014, 11/24/2003 Depression screening for age 12+ 11/20/2024 11/21/2023, 11/20/2023, 10/17/2023, Additional history exists Lipids for age 45-75 12/19/2027 12/18/2022, 12/19/2021, 10/12/2011 Tdap Completed 11/04/2014 Pneumococcal series for age 65+ Completed 7, 11/04/2014 Zoster (shingles) series for age 50+ Completed 02/12/2020, 04/15/2019 Procedures Procedure Name Priority Date/Time Associated Diagnosis Comments LIPID PANEL W REFLEX MEASURED LDL Routine 12/18/2022 9:10 AM CDT senior living current use of antipsychotic medication from Last 3 Months or Most Recently Relevant to Health Maintenance Results * LIPID PANEL W REFLEX MEASURED LDL (12/18/2022 9:10 AM CDT) CHOLESTEROL,TOTAL 187 100 - 199 mg/dL 12/18/2022 6:28 PM CDT [facility] [employer] [facility] Comment: Cholesterol, Total Reference Ranges Desirable <200 mg/dL Borderline 200-239 mg/dL High >=240 mg/dL TRIGLYCERIDES 111 <150 mg/dL 12/18/2022 6:28 PM CDT [facility] [employer] [facility] HDL CHOLESTEROL 72 >40 mg/dL 6:28 PM CDT [facility] NON-HDL CHOLESTEROL 115 <145 mg/dl 12/18/2022 6:28 PM CDT [facility] CHOL/HDL RATIO 2.60 <4.50 12/18/2022 6:28 PM CDT [facility] LDL CHOLESTEROL 93 <=130 mg/dL 12/18/2022 6:28 PM CDT [facility] VLDL CHOLESTEROL 22 <=30 mg/dL 12/18/2022 6:28 PM CDT [facility] PROVIDER ORDERED STATUS RANDOM 12/18/2022 6:28 PM CDT [facility] Blood BLOOD SPECIMEN / Unknown Venipuncture / Unknown 12/18/2022 9:10 AM CDT 12/18/2022 9:12 AM CDT Stacia Osborne MD CHEMISTRY [facility] [address] [place] [address], from Last 3 Months or Most Recently Relevant to Health Maintenance Advance Directives * Full Code (Latest Code Status on File) Date Activated Date Inactivated Comments 11/26/2014 10:06 AM 11/26/2014 2:52 PM Care Teams Surface Grinder Relationship Specialty Start Date End Date Skylar Naranjo MD [address] [place] [id number] PCP - General Internal Medicine 11/21/21
--- OUTSIDE RECORDS SUMMARY | 2023-12-07 08:44 | XMS_ITS ---
Author Organization [facility] Address [address] [place] [address] Care Team Providers Care Buckle Wire Inserter Name Role Phone Unavailable Unavailable Unavailable Surgery Details Not on file Complications Check Surgery Details section. Procedure Estimated Blood Loss Check Surgery Details section. Procedure Findings Check Surgery Details section. Procedure Specimens Taken Check Surgery Details section.
--- OUTSIDE RECORDS SUMMARY | 2023-12-07 08:44 | XMS_ITS | Referral Summary ---
Author Organization [facility] Address [address] [place] [address] Care Team Providers Care Contact Lens Blocker Name Role Phone Elsewhere, Pcp Primary Care Provider Unavailabl e Source Comments Patient records contain information from all sites at [facility]. For routine questions regarding patient records, call [phone] during business hours, M-F 8:00 AM - 5:00 PM Central Time. Record requests for emergency care only can be directed to [phone] at any time.[facility] Allergies Active Allergy Reactions Criticality Noted Date [...] (65 year s or older) (PF) 04/15/2019,04/02/2018 Social History Tobacco Use Types Packs/Day Years [...] week 06/06/2021 How often do you attend [facility] or restorationism services? 1 to 4 times per year 06/06/2021 Do you belong to any clubs o r organizations such as jain groups, unions, fraternal or athletic groups, or [...] Answer Date Recorded PHQ-2 Score 0 05/26/2021 [facility] - Occupational Stress Questionnaire Answer Date Recorded [...] place to sleep or slept in a longterm (including now)? No 06/06/2021 Nutrition Answer Date [...] Master's degree (e.g., MA, MS, Stacey, MEd, [employer], MARTHA) 04/18/2019 Sex and Gender Information Value Date Recorded Sex Assigned at Female 06/06/2021 10:52 AM GREEN CHAIN PULLER Gender Identity Female 05/30/2017 9:25 AM GREEN CHAIN PULLER Sexual Orientation Straight 05/30/2017 9: 25 AM GREEN CHAIN PULLER Last Filed Vital Signs Vital Sign Reading Time Taken Comments Blood Pressure 138/88 08/27/2023 1:31 PM CDT Pulse 76 08/27/2023 1:31 PM CDT Temperature 36.5 ??C (97.7 ??F) 06/09/2021 9:41 AM CS T Respiratory Rate 16 05/26/2021 10:37 AM GREEN CHAIN PULLER Oxygen Saturation - - Inhaled Oxygen Concentration - - Weight 89.4 kg (197 lb 1.5 oz) 08/27/2023 1:31 P M CDT Height 157 cm (5' 1.81) 08/27/2023 1:31 PM CDT Body Mass Index 36.27 08/27/2023 1:31 PM CDT Plan of Treatment Not on file Procedures Procedure Name Priority Date/Time Associated Diagnosis Comments EXTI LIPID PANEL W REFLEX MEASURED LDL Routine 12/18/2022 9:10 AM CDT RENAL FUNCTION PANEL, S Routine 08/22/2022 9:50 AM CDT Hypertension And Chronic Kidney Disease Stage 4 (HCC) Anemia Of Chronic Renal Disease Hyperparathyroidi sm Renal Secondary (HCC) THYROID-STIMULATI NG HORMONE-SENSITIVE (S-TSH) Routine 04/26/2021 10:11 AM GREEN CHAIN PULLER Hypothyroidism COLOGUARD Routine 06/01/2020 9:30 AM GREEN CHAIN PULLER Screening Cancer Colon BI BREAST SCREENING BILATERAL RAD - Routine (most inpatients and all outpatients) 05/27/2020 9:50 AM GREEN CHAIN PULLER Screening Mammogram Breast Cancer from Last 3 [...] 9:50 AM CDT 08/22/2022 11:07 AM CDT Narrative [facility] - 08/22/2022 4:08 PM CDT Specimen Information: Specimen ID: [id number] Specimen Type: Blood Specimen Collection Start Date: 08/22/2022 ??9:50 AM Specimen Received Date: 08/22/2022 11:07 AM Specimen ID: [id number] Specimen Type: Blood Specimen Collection Start Date: 08/22/2022 ??9:50 AM Specimen Received Date: 08/22/2022 ??3:50 PM Lboo Degroot Jr., D.O. LAB BLOOD AD D-ON Performing Organization Address [facility]/ZIP Co de Phone Number [facility] [address] [place] [address], [facility] [address] [place] [address] AUST [facility] [address] [place] [address] * S-TSH (Thyroid-Stimulating Hormone - Sensitive) (04/26/2021 10:11 AM GREEN CHAIN PULLER) TSH, Sensitive 1.6 0.3 - 4.2 mIU/L 04/26/2021 2:09 PM GREEN CHAIN PULLER OW Blood (Blood, Venous) 04/26/2021 10:11 AM GREEN CHAIN PULLER 04/26/2021 1:02 PM GREEN CHAIN PULLER Derrick Umana APRNN.P., R.N. LAB BL OOD ADD-ON Performing Organization Address [facility] Co de Phone Number [facility] [address] [place] [address], [facility] [place] [address], [place] [address] * Cologuard (06/01/2020 9:30 AM GREEN CHAIN PULLER) Result Negative Not Applicable 06/05/2020 8:18 AM GREEN CHAIN PULLER EXLI Comment: A negative result indicates a [...] screened with both Cologuard and colonoscopy. (Laura Madison al, N Engl J Med 2014;370(14):6576-1095) The normal value (reference range) for this assay is negative. COLOGUARD RE-SCREENING RECOMMENDATION: Periodic routine colorectal cancer screening is an important part of preventive healthcare for asymptomatic persons at average risk for colorectal cancer. Following a negative Cologuard result, the [employer] and U.S. Multi-Society Task Force screening guidelines recommend a Cologuard re-screening interval of 3 years. References: [employer] Society (ACS). Colorectal cancer prevention and early detection. [place], [place]: [employer]; [updated 2015Oct 02]. https://www.cancer.org/cancer/hhxhl-ncktjb-nbkccj/detection- diagnosis-staging/acs-recommendations.html. Accessed February 08, 2018; Garrison DK, Hayden MCDUFFIE, Rick EdmondK, Colorectal Cancer Screening: Recommendations for Physicians and Patients from the U.S. Multi-Society Task Force on Colorectal Cancer Screening, Am J Gastroenterology 2017; 112:8940-1653. TEST TYPE: Composite algorithmic analysis of stool [...] interval of every 3 years by the [employer] and U.S. Multi-Society Task Force. [...] can be accessed at the following location: www.Knowable/results. Additional description of the Cologuard test process, warnings and precautions can be found at www.cologuardtest.com. Rx only. Stool (Stool) 06/01/2020 9:3 0 AM GREEN CHAIN PULLER 06/02/2020 9:01 AM GREEN CHAIN PULLER Carey Arriaga APRN C.N.P., R.N. LAB MARILYN DY FLUIDS AND STOOLS ORDERABLES [employer] [address] [place] [id number] [employer] [address] [place] [address], [address] [place] [address] * BI Breast Screening Bilateral (05/27/2020 9:50 AM GREEN CHAIN PULLER) Anatomical Region Laterality Modality Breast, Breast Imaging RST L OS, Breast Imaging ARZ LOS, Breast Imaging FLA LOS Bilateral Mammography 05/27/2020 9:52 AM GREEN CHAIN PULLER Impressions 05/27/2020 9:53 AM GREEN CHAIN PULLER Negative. RECOMMENDATION: ??Annual Screening Mammogram ASSESSMENT: ??BI-RADS: 1: Negative. Narrative 05/27/2020 9:53 AM GREEN CHAIN PULLER EXAM: ??BI BREAST SCREENING BILATERAL Current study [...] Annual Screening Mammogram ASSESSMENT: BI-RADS: 1: Negative. Carey Arriaga APRN, C.N.P., Ila IMG BI PROCEDURES from Last 3 Months or Most Recently Relevant to Health Maintenance Advance Directives For more information, please contact: [phone] Documents on File Type Date Recorded Patient Eight Section Blower Expl anation Advance Directives 12/01/2013 12:00 AM Leg joaquina document. See document viewer. Care Teams Contact Lens Blocker Relationship Specialty Start Date End Date Elsewhere, Pcp PCP - General Internal Medicine 04/12/22
== END 2023-12-04 08:51 | disposition home or self-care (01) ==
PROVIDERS: PCP Internal Medicine; Referring Provider Internal Medicine; Visit Provider Internal Medicine
DX: E78.5 Hyperlipidemia, unspecified (principal); E03.9 Hypothyroidism, unspecified
CPT/HCPCS: 80061; 84443

== ENCOUNTER 2024-02-18 11:17 | Outpatient (CLI) | payer MEDICARE, BC, SELFPAY ==
--- OUTSIDE RECORDS SUMMARY | 2024-02-22 17:00 | XMS_ITS | Clinical Summary ---
Author Organization [facility] Address [place], [place] [address] Care Team Providers Care Breaker Mechanic Name Role Phone Skylar Naranjo MD Primary Care Provider [phone] Allergies No known active allergies Medications Medication [...] once daily before a meal. 01/25/2023 Active omeprazole (PRILOSEC) 40 mg Delayed-Release capsule Take 40 mg by mouth once daily before a meal. 11/19/2023 Active acetaminophen (TylenoL) 325 mg tablet Take by mouth every 4 hours if needed. Max acetaminophen dose: 4000mg in 24 hrs. Active busPIRone (BUSPAR) 10 mg tabletIndications :Social anxiety disorder 1 tablet twice a day 180 Tablet 1 12/31/2023 Active divalproex (Depakote ER) 250 mg Extended-Release tabletIndications :Bipolar 1 disorder (HC) Take 4 Tablets (1,000 mg) by mouth at bedtime. 360 Tablet 1 12/31/2023 Active QUEtiapine (SEROQUEL) 200 mg tabletIndications :Bipolar 1 disorder (HC) Take 2 Tablets (400 mg) by mouth at bedtime. 180 Tablet 1 12/31/2023 Active Active Problems Problem Noted Date Diagnosed Date Obesity with body mass index 30 or greater 05/2611/15/2022 Hyperparathyroidism due to renal insufficiency 1 07/27/2019 11/15/2022 Hyperlipidemia 04/21/2019 11/15/2022 Anemia of chronic renal failure 10/23/2018 11/15/2022 Constipation 04/10/2018 11/15/2022 Primary hypothyroidism 05/30/2017 Hypertensive kidney disease, stage IV 05/30/2017 11/15/2022 Overview (11/15/2022): Last Assessment & Plan: Referral to Nephrology 04/23/2018 Essential hypertension 08/29/2008 Overactive bladder 08/29/2008 Menopause 08/29/2008 Bipolar 1 disorder 12/09/2003 Overview (11/15/2022): Bipolar I Dis NOS Encounters Date Type Department Care Team Description 02/20/2024 9:00 AM CDT Office Visit [facility] [address] [facility] [place] [address] Ruma Peña, PhD, LP Mental Health Intake 02/20/2024 Travel 02/17/2024 Travel 01/23/2024 9:00 AM CDT Office Visit [facility] [address] [facility] [place] [address] Ruma Peña, PhD, LP Individual Therapy 01/23/2024 Travel 01/18/2024 Travel 12/31/2023 9:45 AM CDT Office Visit [facility] [address] [facility] [place] [address] Stacia Osborne MD Medication Management (Things are going fine) 12/31/2023 Travel 12/26/2023 8:15 AM CDT Office Visit [facility] [address] [place] [address] Ruma Peña, PhD, [facility] Trmt Plan 12/25/2023 Travel from Last 3 Months Immunizations Name Administration Dates Next Due COVID-19 vaccine ([employer] 30mcg/0.3mL) PF, MDV 03/17/2021,08/31/2020,08/10/2020 DT (Age < 7 years) 11/24/2003 [...] Answer Date Recorded PHQ-2 TOTAL SCORE 0 12/25/2023 Social Connections Answer Date Recorded Frequency of [...] Sign Reading Time Taken Comments Blood Pressure 126/84 12/31/2023 9:49 AM CDT Pulse 81 12/31/2023 9:49 AM CDT Temperature 36.7 ??C (98 ??F) 11/26/2014 9:55 AM CDT Respiratory Rate 16 11/26/2014 12:30 PM CDT Oxygen Saturation 97% 11/19/2017 10:54 AM CDT Inhaled Oxygen Concentration - - Weight 89.4 kg (197 lb 1.6 oz) 12/31/2023 9:49 A M CDT Height 157.5 cm (5' 2) 03/24/2019 10:10 AM CDT Body Mass Index 36.05 03/24/2019 10:10 AM CDT Plan of Treatment Upcoming Encounters Date Type Department Care Team (Late st Contact Info) Description 03/19/2024 9:00 AM CDT Office Visit [facility] [address] [place] [address] Ruma Peña, PhD, LP [address] [place] [address] 06/30/2024 9:45 AM BEAM MACHINE OPERATOR Office Visit [facility] [address] [place] [address] Stacia Osborne MD [address] [place] [address] Health Maintenance Due Date Last Done Comments Hepatitis C screening for ag e 18-79 1966 Colonoscopy through age 75 1993 RSV vaccine for adults or (1 - 1-dose 60+ series) 2008 DEXA/DXA scan for age 65+ 2013 Medicare Wellness for age 65+ 2013 BMI (ht and wt on same day) for age 18+ 03/24/2020 03/24/2019 Influenza for age 65+ 02/10/2024 04/25/2022 , 03/11/2021, 02/12/2020, Additional history exists Tetanus booster 11/04/2024 11/04/2014, 11/24/2003 Depression screening for age 12+ 12/25/2024 12/26/2023, 12/25/2023, 11/21/2023, Additional history exists Lipids for age 45-75 12/30/2028 12/31/2023, 12/18/2022, 12/19/2021, Additional history exists Tdap Completed 11/04/2014 Pneumococcal series for age 65+ Completed 7, 11/04/2014 Zoster (shingles) series for age 50+ Completed 02/12/2020, 04/15/2019 COVID-19 vaccine series Completed 12/06/19 24, 03/16/2023, 04/25/2022, Additional history exists Procedures Procedure Name Priority Date/Time Associated Diagnosis Comments VALPROIC ACID TOTAL Routine 12/31/2023 1 0:32 AM CDT On valproic acid therapy PLATELET COUNT Routine 12/31/2023 10:32 AM CDT On valproic acid therapy HEPATIC FUNCTION PANEL Routine 12/31/2023 10:32 AM CDT On valproic acid therapy HEMOGLOBIN A1C SCREENING Routine 12/31/2023 10:32 AM CDT 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 (<5.7%) ?Normal ? (5.7% to 6.4%) ? Indicates prediabetes ? (>=6.5%) ? Confirms diabetes Falsely low levels may be seen with: Recent Transfusion, Recent Significant Blood Loss, Hemolytic Diseases, or Falsely elevated levels may be seen with: Untreated Anemias, Splenectomy Stacia Osborne MD CHEMISTRY Performing Organization Address City/State/[facility] Co de Phone Number [facility] [address] [place] [address], * LIPID PANEL W REFLEX MEASURED LDL (12/31/2023 10:32 AM CDT) CHOLESTEROL,TOTAL 168 100 - 199 mg/dL 12/31/2023 6:58 PM CDT [facility] Comment: Cholesterol, Total Reference Ranges Desirable <200 mg/dL Borderline 200-239 mg/dL High >=240 mg/dL TRIGLYCERIDES 105 <150 mg/dL 12/31/2023 6:58 PM CDT [facility] HDL CHOLESTEROL 66 >40 mg/dL 6:58 PM CDT [facility] NON-HDL CHOLESTEROL 102 <145 mg/dl 12/31/2023 6:58 PM CDT [facility] CHOL/HDL RATIO 2.55 <4.50 12/31/2023 6:58 PM CDT [facility] LDL CHOLESTEROL 81 <=130 mg/dL 12/31/2023 6:58 PM CDT [facility] VLDL CHOLESTEROL 21 <=30 mg/dL 12/31/2023 6:58 PM CDT [facility] PROVIDER ORDERED STATUS RANDOM 12/31/2023 6:58 PM CDT [facility] Blood BLOOD SPECIMEN / Unknown Venipuncture / Unknown 12/31/2023 10:32 AM CDT 12/31/2023 10:34 AM CDT Stacia Osborne MD CHEMISTRY Performing Organization Address City/[facility]/ZIP Co de Phone Number [facility] [address] [place] [id number], [place] * (ABNORMAL) PLATELET COUNT (12/31/2023 10:32 AM CDT) Pathologist [facility] PLATELET COUNT 148 140 - 440 thou/cu mm 12/31/2023 10:38 AM CDT [facility] MPV 11.3(H) 6.5 - 11.0 fL 12/31/2023 10:38 AM CDT [facility] Blood BLOOD SPECIMEN / Unknown Venipuncture / Unknown 12/31/2023 10:32 AM CDT 12/31/2023 10:34 AM CDT Stacia Osborne MD HEMATOLOGY Performing Organization Address [facility] Co de Phone Number [facility] [address] [place] [address], * VALPROIC ACID TOTAL (12/31/2023 10:32 AM CDT) Pathologist [facility] VALPROIC ACID,TOTAL 74.1 50.0 - 100.0 ug/mL 12/31/2023 6:58 PM CDT [facility] DATE OF LAST DOSE 12/30/2023 12/31/2023 6:58 PM CDT [facility] TIME OF LAST DOSE 8:30 PM 12/31/2023 6:58 PM CDT [facility] Blood BLOOD SPECIMEN / Unknown Venipuncture / Unknown 12/31/2023 10:32 AM CDT 12/31/2023 10:34 AM CDT Stacia Osborne MD CHEMISTRY Performing Organization Address City/[facility]/ZIP Co de Phone Number [facility] [address] [place] [id number], [place] * HEPATIC FUNCTION PANEL (12/31/2023 10:32 AM CDT) ALBUMIN 4.4 4.0 - 4.9 g/dL 12/31/2023 6:58 PM CDT [facility] PROTEIN,TOTAL 7.5 6.0 - 8.0 g/dL 12/31/2023 6:58 PM CDT [facility] BILIRUBIN,TOTAL 0.2 0.0 - 1.2 mg/dL 12/31/2023 6:58 PM CDT [facility] BILIRUBIN,DIRECT <0.2 0.0 - 0.3 mg/dL 12/31/2023 6:58 PM CDT [facility] BILIRUBIN,INDIRE CT 12/31/2023 6:58 PM CDT [facility] Comment:Unable to calculate, Direct Bili <0.2 ALK PHOSPHATASE 73 35 - 104 IU/L 12/31/2023 6:58 PM CDT [facility] ALT (SGPT) 20 10 - 35 IU/L 12/31/2023 6:58 PM CDT [facility] AST (SGOT) 31 10 - 35 IU/L 12/31/2023 6:58 PM CDT [facility] Blood BLOOD SPECIMEN / Unknown Venipuncture / Unknown 12/31/2023 10:32 AM CDT 12/31/2023 10:34 AM CDT Stacia Osborne MD CHEMISTRY [facility] [address] [place] [address], from Last 3 Months Advance Directives * Full Code (Latest Code Status on File) Date Activated Date Inactivated Comments 11/26/2014 10:06 AM 11/26/2014 2:52 PM Care Teams Breaker Mechanic Relationship Specialty Start Date End Date Skylar Naranjo MD [address] [place] [address] PCP - General Internal Medicine 11/21/21
== END 2024-02-18 11:18 | disposition home or self-care (01) ==
LOC: NFLDREF 02-22 16:58
PROVIDERS: PCP Internal Medicine; Referring Provider Internal Medicine; Visit Provider Internal Medicine
DX: E78.5 Hyperlipidemia, unspecified (principal); E03.9 Hypothyroidism, unspecified; E66.9 Obesity, unspecified; I10 Essential (primary) hypertension; N18.4 Chronic kidney disease, stage 4 (severe)
CPT/HCPCS: 80061; 80069; 82043; 82570; 82728; 83540; 83550; 83970; 84443; 84450; 84460; 84550

== ENCOUNTER 2024-08-18 10:12 | Outpatient (CLI) | payer MEDICARE, BC, SELFPAY | END 2024-08-18 10:13 | disposition home or self-care (01) | LOC: NFLDREF 08-20 05:08 | PROVIDERS: PCP Internal Medicine; Referring Provider Internal Medicine; Visit Provider Internal Medicine Nephrology | DX: I12.9 Hypertensive chronic kidney disease with stage 1 through stage 4 chronic kidney disease, or unspecified chronic kidney disease (principal); N18.4 Chronic kidney disease, stage 4 (severe); E78.5 Hyperlipidemia, unspecified | CPT/HCPCS: 80061; 80069; 82043; 82570; 82728; 83540; 83550; 83970; 84550 ==

== ENCOUNTER 2024-12-24 08:35 | Outpatient (CLI) | payer MEDICARE, BC, SELFPAY | END 2024-12-24 08:36 | disposition home or self-care (01) | LOC: NFLDREF 12-25 18:27 | PROVIDERS: PCP Internal Medicine; Referring Provider Internal Medicine; Visit Provider Internal Medicine | DX: E78.5 Hyperlipidemia, unspecified (principal); E03.9 Hypothyroidism, unspecified | CPT/HCPCS: 80061; 84439; 84443 ==

== ENCOUNTER 2025-02-10 09:10 | Outpatient (CLI) | payer MEDICARE, BC, SELFPAY | END 2025-02-10 09:11 | disposition home or self-care (01) | LOC: NFLDREF 02-11 09:24 | PROVIDERS: PCP Internal Medicine; Referring Provider Internal Medicine Nephrology; Visit Provider Internal Medicine Nephrology | DX: I12.9 Hypertensive chronic kidney disease with stage 1 through stage 4 chronic kidney disease, or unspecified chronic kidney disease (principal); N18.4 Chronic kidney disease, stage 4 (severe); N25.81 Secondary hyperparathyroidism of renal origin; E03.9 Hypothyroidism, unspecified; E78.5 Hyperlipidemia, unspecified; R82.90 Unspecified abnormal findings in urine; Z79.899 Other long term (current) drug therapy | CPT/HCPCS: 80061; 80069; 82043; 82570; 82607; 82728; 82746; 83540; 83550; 83970; 84439; 84443; 84450; 84460; 84550; 86140; 87086 ==

== ENCOUNTER 2025-03-23 12:00 | Outpatient (CLI) | payer MEDICARE, BC, SELFPAY | END 2025-03-23 12:01 | disposition home or self-care (01) | LOC: AMB 03-25 09:01 | PROVIDERS: PCP Internal Medicine; Visit Provider Emergency Medicine | DX: R42 Dizziness and giddiness (principal); M25.571 Pain in right ankle and joints of right foot | CPT/HCPCS: A0425; A0429 ==

== ENCOUNTER 2025-03-23 12:35 | Emergency (ER) | payer MEDICARE, BC, SELFPAY ==
--- OUTSIDE RECORDS SUMMARY | 2025-02-17 09:00 | XMS_ITS | Encounter Summary ---
Author Organization [facility] Address [address] [place] [address] Care Team Providers Care Director Of Quality Improvement Name Role Phone Elsewhere, Pcp Primary Care Provider Unavailabl e Reason for Visit * Appointment Request (Routine) - Closed Specialty Diagnoses / Procedures Referred By Dolly t Referred To Contact Nephrology and Hypertension Referral ID Status Reason Start Date Expiration Date Visits Re quested Visits Authorized [id number] Closed 01/16/2025 04/18/2026 1 1 Encounter Details Date Type Department Care Team (Latest Contact Info) Description 02/17/2025 9:00 AM CDT External Outreach Division of Nephrology and Hypertension in [place], [place] [address] [place] [address] Lobo Degroot Jr., D.O. [address] [place] [address] Chronic Kidney Disease Stage 4 Glomerular Filtration Rate 15-29 (HCC) (Primary Dx); Hypertensive Chronic Kidney Disease With Stage 1 Through Stage 4 Chronic Kidney Disease, Or Unspecified Chronic Kidney Disease; Hyperparathyroidism Renal Secondary (HCC); Hypothyroidism Primary; Anemia Of Chronic Renal Disease; Bipolar I Disorder (HCC) Social History Tobacco Use Types Packs/Day Years [...] by your partner or ex-partner? No 06/06/2021 Hunger Vital Sign Answer Date Recorded [...] place to sleep or slept in a group home (including now)? No 06/06/2021 Education Answer Date Recorded What is the highest level of school you have completed or the highest degree you have received? Master's degree (e.g., MA, MS, Stacey, MEd, [employer], MARTHA) 04/18/2019 Comments No Sex and Gender Information Value Date Recorded Sex Assigned at Female 06/06/2021 10:52 AM ELECTRONICS TECH Legal Sex Female 11:40 PM ELECTRONICS TECH Gender Identity Female 05/30/2017 9:25 AM ELECTRONICS TECH Sexual Orientation Straight 05/30/2017 9: 25 AM ELECTRONICS TECH documented as of this encounter Last Filed Vital Signs Vital Sign Reading Time Taken Comments Blood Pressure 122/82 02/17/2025 9:09 AM CDT Pulse 75 02/17/2025 9:09 AM CDT Temperature - - Respiratory Rate - - Oxygen Saturation - - Inhaled Oxygen Concentration - - Weight 89 kg (196 lb 3.4 oz) 02/17/2025 9:09 AM CDT Height 158.7 cm (5' 2.48) 02/17/2025 9:09 AM CD T Body Mass Index 35.34 02/17/2025 9:09 AM CDT documented in this encounter Progress Notes * Lobo Degroot Jr., D.O. - 02/17/2025 9:00 AM CDT Referring Provider: DR Roach SUBJECTIVE REASON FOR VISIT [facility] out [facility] Follow-up regards CKD HISTORY OF PRESENT ILLNESS Mrs. Perkins is a 74 y.o. female who presents with CKD stage 4, longstanding, on the background of prior NSAID and lithium use, with a stable serum creatinine at 2.5-2.6 mg/dL over the past 12 years. She has done well since our last visit with her main complaint being that of left hip pain. This began back in November when she was doing some yd work/moving some flag stones. Intermittently she has a deep ache in the buttock, and low back/left hip region. This comes and goes in usually is made betterby Tylenol. There is no definitive radicular component. No cough or strain effect. Discussed piriformis syndrome, DJD, arthritic issues. She has not used any NSAIDs or Mendoza 2 inhibitors. Her blood pressures been excellent she has not hadany orthostatic issues. She has been using some biotin and has noticed some improvement in her nails and hair. We reviewed her chemistries, her urine studies, and CBC. I note that her B12 folate and iron storesare normal hemoglobin stable at 11.4. Medical History[1] Current Medications[2] REVIEW OF SYSTEMS All other systems reviewed and are negative. OBJECTIVE BP 122/82 Pulse 75 Ht 158.7 cm Wt 89 kg BMI 35.34 kg/m?? PHYSICAL EXAMINATION General: Awake, alert, oriented. HEENT: BILLIE, EOMI, mucous membranes moist, no oral lesions. Neck: No masses, no bruits. Lungs: Clear to auscultation. Heart: Regular rate and rhythm. No ectopy, murmurs, or rubs. Abdomen: Soft, non-tender. Extremities: No cyanosis, no clubbing, no edema. Neuro: Cranial nerves intact. Gait is normal, strength grossly normal. Skin: No suspicious lesions identified. Psychiatric: Normal affect. DIAGNOSTICS Note microalbumin to creatinine ratio 40 milligrams/gram, hemoglobin 11.4, suppressed TSH, creatinine 2.4 mg/dL ASSESSMENT / PLAN #1 Chronic Kidney Disease Stage 4 Glomerular Filtration Rate 15-29 (HCC) Stable GFR, her background diseases due to prior lithium and NSAID use, with hypertension. Going forward: 1. Goal blood pressures less than 130s over 80s which has been achieved 2. No NSAIDs or Mendoza 2 inhibitors 3. Stay well hydrated, 50 oz of water per day 4. I will see her back in 6 months. Congratulated her on her progress. Note that there is a slight increase in her microalbumin to creatinine ratio we will continue to monitor. #2 Hypertensive Chronic Kidney Disease With Stage 1 Through Stage 4 Chronic Kidney Disease, Or Unspecified Chronic Kidney Disease Her goal blood pressures have certainly been achieved here in the office, we will continue her current antihypertensive regimen which includes amlodipine 5 mg a day only. Instructed on low-sodium diet. We discussed her medically complicated overweight situation and that a GLP 1 agonist may be appropriate for her, given her hypertension, CKD, hyperlipidemia and high-risk status from the CKD perspective. Also highlighted however that these agents are often not paid for by certain plans, and that itmight be best due to the side effects which we discussed that she could bring this up with her Internal Medicine team, #3 Hyperparathyroidism Renal Secondary (HCC) Satisfactory calcium phosphorus and PTH levels, no need for extra vitamin-D. #4 Hypothyroidism Primary She seems well replaced with her thyroid, given her current values. #5 Anemia Of Chronic Renal Disease She does not need an INEZ regimen, her iron stores are replete, B12 folate are acceptable. #6 Bipolar I Disorder (HCC) Her mood is well controlled Total time: 30 minutes Counseling Time: 20 minutes Lobo Degroot Jr., D.O. [1] Past Medical History: Diagnosis Date Anxiety Generalized Disorder 07/19/2016 Atrophy Vagina Due To Estrogen Deficiency 12/26/2018 Bipolar I Disorder (HCC) 05/16/2017 Constipation 04/10/2018 Hypercholesterolemia 04/21/2019 Hypertension And Chronic Kidney Disease Stage 3 (HCC) 05/30/2017 Hypertension And Chronic Kidney Disease Stage 4 (HCC) 05/30/2017 Hypothyroidism Primary 05/30/2017 [2] Current Outpatient Medications: acetaminophen (TYLENOL EXTRA STRENGTH) 500 mg tablet, Take 1 tablet by mouth as needed., Disp: , Rfl: amLODIPine (NORVASC) 5 mg tablet, Take 1 tablet (5 mg total) by mouth daily., Disp: 90 tablet, Rfl:3 atorvastatin (LIPITOR) 10 mg tablet, TAKE ONE TABLET BY MOUTH EVERY DAY, Disp: 90 tablet, Rfl: 3 divalproex (DEPAKOTE ER) 250 mg 24 hr tablet, TAKE 4 TABLETS (1,000 MG) BY MOUTH DAILY., Disp: 360 tablet, Rfl: 3 levothyroxine (SYNTHROID, LEVOTHROID) 50 mcg tablet, TAKE ONE TABLET BY MOUTH EVERY DAY, Disp: 90 tablet, Rfl: 3 MULTIVITAMIN ORAL, Take 1 tablet by mouth daily. , Disp: , Rfl: polyethylene glycol (MIRALAX) 17 gram/dose oral powder, MIX 17GMS IN 80Z OF LIQUID AND DRINK TWICE DAILY, Disp: 1530 g, Rfl: 3 QUEtiapine (SEROquel) 100 mg tablet, TAKE 2 TABLETS (200 MG) BY MOUTH AT BEDTIME., Disp: 180 tablet, Rfl: 0 documented in this encounter Plan of Treatment Not on file documented as of this encounter Visit Diagnoses Diagnosis Chronic Kidney Disease Stage 4 Glomerular Filtration Rate 15-29 (HCC)- Primary Hypertensive Chronic Kidney Disease With Stage 1 Through Stage 4 Chronic Kidney Disease, Or Unspecified Chronic Kidney Disease Hyperparathyroidism Renal Secondary (HCC) Hypothyroidism Primary Anemia Of Chronic Renal Disease Bipolar I Disorder (HCC) documented in this encounter Additional Health Concerns Assessment Noted Time PHQ-9 Depression Total Score: 0 05/30/20 17 9:36 AM ELECTRONICS TECH documented as of this encounter Care Teams Director Of Quality Improvement Relationship Specialty Start Date End Date Elsewhere, Pcp PCP - General Internal Medicine 04/12/22 documented as of this encounter
--- OUTSIDE RECORDS SUMMARY | 2025-03-23 12:37 | XMS_ITS | Clinical Summary ---
Author Organization [facility] Address [address] [place] [id number] Care Team Providers Care Reed Cleaner Name Role Phone Skylar Naranjo MD Primary Care Provider [phone] Allergies No known active allergies Medications polyethylene glycoL (MIRALAX) 17 gram/dose powder 17 g. Taking twice daily 7 Active levothyroxine (SYNTHROID) 50 mcg tablet Take 50 mcg by mouth one time. 0 Active atorvastatin (LIPITOR) 10 mg tablet Take 10 mg by mouth once daily. 0 Active amLODIPine (NORVASC) 5 mg tablet Take 5 mg by mouth once daily. 2 Active medication order composer One a day- Women's over 50 multivitamin once daily 0 3 Active oxybutynin XL (DITROPAN XL) 5 mg CR tablet TAKE ONE TABLET(5MG) BY MOUTH EVERY DAY 3 Active omeprazole (PRILOSEC) 40 mg Delayed-Releas e capsule Take 40 mg by mouth once daily before a meal. 4 Active acetaminophen (TylenoL) 325 mg tablet Take by mouth every 4 hours if needed. Max acetaminophen dose: 4000mg in 24 hrs. Active busPIRone (BUSPAR) 10 mg tabletIndicati ons:Social anxiety disorder 1 tablet twice a day 180 Tablet 1 5 Active divalproex (Depakote ER) 250 mg Extended-Relea se tabletIndicati ons:Bipolar 1 disorder (HC) Take 4 Tablets (1,000 mg) by mouth at bedtime. 360 Tablet 1 5 Active QUEtiapine (SEROQUEL) 200 mg tabletIndicati ons:Bipolar 1 disorder (HC) Take 2 Tablets (400 mg) by mouth at bedtime. 180 Tablet 1 5 Active Active Problems Problem Noted Date Diagnosed Date Obesity with body mass index 30 or greater 05/2611/15/2022 Hyperparathyroidism due to renal insufficiency 1 07/27/2019 11/15/2022 Hyperlipidemia 04/21/2019 11/15/2022 Anemia of chronic renal failure 10/23/2018 11/15/2022 Constipation 04/10/2018 11/15/2022 Primary hypothyroidism 05/30/2017 3 Hypertensive kidney disease, stage IV 05/30/2017 11/15/2022 Overview (11/15/2022): Last Assessment & Plan: Referral to Nephrology 04/23/2018 Essential hypertension 08/29/2008 Overactive bladder 08/29/2008 Menopause 08/29/2008 Bipolar 1 disorder 12/09/2003 Overview (11/15/2022): Bipolar I Dis NOS Encounters Date Type Department Care Team Description 02/11/2025 9:00 AM CDT Office Visit [facility] [address] [place] [address] Ruma Peña, PhD, LP Trmt Plan 02/11/2025 Travel 01/07/2025 9:00 AM CDT Office Visit [facility] [address] [place] [address] Ruma Peña, PhD, LP Individual Therapy 01/06/2025 Travel 12/29/2024 9:45 AM CDT Office Visit [facility] [address] [place] [address] Stacia Osborne MD Follow Up; Medication Management 12/29/2024 Travel from Last 3 Months Immunizations Immunization Administration Dates Next Due COVID-19 vaccine ([facility] 30mcg/0.3mL) PF, MDV 03/17/2021,08/31/2020,08/10/2020 DT (Age < [...] Answer Date Recorded PHQ-2 TOTAL SCORE 0 01/06/2025 Alcohol Use Answer Date Recorded How often do you have a drink containing alcohol ? 2 05/02/2023 Average Number of Drinks Not on file 023 Frequency of Binge Drinking Not on file 04/12 Comments No Sex and Gender Information Value Date Recorded Sex Assigned at Not on file Legal Sex Female 5:40 AM SOLID WASTE TECHNICIAN Gender Identity Not on file Sexual Orientation Not on file Obstetrics History Last Filed Vital Signs Vital Sign Reading Time Taken Comments Blood Pressure 138/75 12/29/2024 9:36 AM CDT Pulse 74 12/29/2024 9:36 AM CDT Temperature 36.7 C (98 F) 11/26/2014 9:55 AM CDT Respiratory Rate 16 11/26/2014 12:30 PM CDT Oxygen Saturation 97% 11/19/2017 10:54 AM CDT Inhaled Oxygen Concentration - - Weight 87.5 kg (193 lb) 12/29/2024 9:36 AM CDT Height 157.5 cm (5' 2) 03/24/2019 10:10 AM CDT Body Mass Index 35.3 03/24/2019 10:10 AM CDT Plan of Treatment Upcoming Encounters Date Type Department Care Team (Late st Contact Info) Description 03/25/2025 9:00 AM CDT Office Visit [facility] [address] [place] [phone] Ruma Peña, PhD, LP [address] [place] [address] 04/29/2025 9:00 AM SOLID WASTE TECHNICIAN Office Visit [address] [phone] Ruma Peña, PhD, LP [address] [place] [address] 06/17/2025 9:00 AM SOLID WASTE TECHNICIAN Office Visit [facility] [address] [place] [phone] Ruma Peña, PhD, LP [address] [place] [address] 07/01/2025 10:15 AM SOLID WASTE TECHNICIAN Office Visit [address] [address] Stacia Osborne MD [address] [place] [address] Health Maintenance Due Date Last Done Comments Hepatitis C screening for age 18-79 1966 DEXA/DXA scan for age 65+ 2013 Medicare Wellness for age 65+ 2013 BMI (ht and wt on same day) for age 18+ 03/24/2020 03/24/2019 RSV vaccine for adults or (1 - 1-dose 75+ series) 2023 Tetanus booster 11/04/2024 11/04/2014, 11/24/2003 COVID-19 vaccine series ( season) 2025 03/07/2024, 12/06/2023, 03/16/2023, Additional history exists Influenza Vaccine (#1) 2025 9, 04/05/2018, 04/02/2018, Additional history exists Depression screening for age 12+ 01/06/2026 01/06/2025, 12/29/2024, 10/17/2024, Additional history exists Pneumococcal series for age 50+ Completed 10/31/2016, 11/04/2014 Zoster (shingles) series for age 50+ Completed 02/12/2020, 04/15/2019 Hepatitis B series for 19+ Aged Out N o longer eligible based on patient's age to complete this topic Procedures Procedure Name Priority Date/Time Associated Diagnosis Comments LIPID PANEL W REFLEX MEASURED LDL Routine 12/29/2024 10:17 AM CDT custodial current use of antipsychotic medication HEMOGLOBIN A1C Routine 12/29/2024 10:17 AM CDT termite control technician current use of antipsychotic medication COMP METABOLIC PANEL Routine 12/29/2024 10:17 AM CDT On valproic acid therapy CBC W PLT NO DIFF Routine 12/29/2024 10: 17 AM CDT On valproic acid therapy VALPROIC ACID TOTAL Routine 12/29/2024 1 0:17 AM CDT On valproic acid therapy QUETIAPINE (SEROQUEL) Routine 12/29/2024 10:17 AM CDT custodial current use of antipsychotic medication from Last 3 Months Results * (ABNORMAL) HEMOGLOBIN A1C (12/29/2024 10:17 AM CDT) HEMOGLOBIN A1C 6.1(H) <5.7 % [facility] Comment: For someone without known diabetes, a hemoglobin A1c value between 5.7% and 6.4% is consistent with prediabetes and should be confirmed with a follow-up test. For someone with known diabetes, a value <7% indicates that their diabetes is well controlled. A1c targets should be individualized based on duration of diabetes, age, comorbid conditions, and other considerations. This assay result is consistent with an increased risk of diabetes. Currently, no consensus exists regarding use of hemoglobin A1c for diagnosis of diabetes for children. Blood BLOOD SPECIMEN / Unknown 12/29/2024 10:17 AM CDT 12/29/2024 10:18 AM CDT us Stacia Osborne MD CHEMISTRY Final Result [facility] [facility] [address] [place] [address], [facility] [address] [place] [address] * LIPID PANEL W REFLEX MEASURED LDL (12/29/2024 10:17 AM CDT) [facility] CHOLESTEROL, TOTAL 180 <200 mg/dL [facility] HDL CHOLESTEROL 73 > OR = 50 mg/dL [facility] TRIGLYCERIDES 111 <150 mg/dL [facility] LDL-CHOLESTEROL 86 mg/dL (calc) [facility] Comment: Reference range: <100 Desirable range <100 mg/dL for primary prevention; <70 mg/dL for patients with CHD or diabetic patients with > or = 2 CHD risk factors. LDL-C is now calculated using the Jean Carlos-Shaun calculation, which is a validated novel method providing better accuracy than the Friedewald equation in the estimation of LDL-C. Jean Carlos SS et al. RODRÍGUEZ. 2013;310(19): 7301-6636 (http://education.Sighter.Blackbay/faq/CBZ411) CHOL/HDLC RATIO 2.5 <5.0 (calc) [facility] NON HDL CHOLESTEROL 107 <130 mg/dL (calc) [facility] Comment: For patients with diabetes plus 1 major ASCVD risk factor, treating to a non-HDL-C goal of <100 mg/dL (LDL-C of <70 mg/dL) is considered a therapeutic option. Blood BLOOD SPECIMEN / Unknown 12/29/2024 10:17 AM CDT 12/29/2024 10:18 AM CDT Stacia Osborne MD CHEMISTRY Final Result [facility] [facility] [address] [place] [address], [facility] [address] [place] [address] * (ABNORMAL) CBC W PLT NO DIFF (12/29/2024 10:17 AM CDT) WHITE BLOOD CELL COUNT 4.0 3.8 - 10.8 Thousand/u L [facility] RED BLOOD CELL COUNT 3.61(L) 3.80 - 5.10 Million/uL [facility] HEMOGLOBIN 10.9(L) 11.7 - 15.5 g/dL [facility] HEMATOCRIT 34.1(L) 35.0 - 45.0 % [facility] MCV 94.5 80.0 - 100.0 fL [facility] MCH 30.2 27.0 - 33.0 pg [facility] MCHC 32.0 32.0 - 36.0 g/dL [facility] Comment: For adults, a slight decrease in the calculated MCHC value (in the range of 30 to 32 g/dL) is most likely not clinically significant; however, it should be interpreted with caution in correlation with other red cell parameters and the patient's clinical condition. RDW 13.6 11.0 - 15.0 % [facility] PLATELET COUNT 131(L) 140 - 400 Thousand/u L [facility] MPV 11.7 7.5 - 12.5 fL [facility] Blood BLOOD SPECIMEN / Unknown 12/29/2024 10:17 AM CDT 12/29/2024 10:18 AM CDT Stacia Osborne MD HEMATOLOGY Final Result Performing Organization Address City/[facility]/ZIP Co de Phone Number [facility] [address] [place] [address], [facility] [address] [place] [address] * QUETIAPINE (SEROQUEL) (12/29/2024 10:17 AM CDT) QUETIAPINE, SERUM/PLASMA 308.1 ng/mL [facility] Comment: Therapeutic and Toxic ranges have not been established. Patients taking recommended dosage at steady-state: 100.0 - 1000.0 ng/mL This test was developed and its analytical performance characteristics have been determined by [facility] [place], [place]. It has not been cleared or approved by the U.S. Food and Drug Administration. This assay has been validated pursuant to the CLIA regulations and is used for clinical purposes. Blood BLOOD SPECIMEN / Unknown 12/29/2024 10:17 AM CDT 12/29/2024 10:18 AM CDT Stacia Osborne MD SEND OUTS Final Result Performing Organization Address City/[facility]/ZIP Co de Phone Number [facility] [address] [place], [place] , [facility] [address] [place], [place] * VALPROIC ACID TOTAL (12/29/2024 10:17 AM CDT) VALPROIC ACID 97.3 50.0 - 100.0 mg/L [facility] Blood BLOOD SPECIMEN / Unknown 12/29/2024 10:17 AM CDT 12/29/2024 10:18 AM CDT Stacia Osborne MD CHEMISTRY Final Result [facility] [address] [place] [address], [place] [phone] [facility] [address] [place] [address] * (ABNORMAL) COMP METABOLIC PANEL (12/29/2024 10:17 AM CDT) GLUCOSE 95 65 - 99 mg/dL [facility] Comment: Fasting reference interval UREA NITROGEN (BUN) 43(H) 7 - 25 mg/dL [facility] CREATININE 2.87(H) 0.60 - 1.00 mg/dL [facility] EGFR 16(L) > OR = 60 mL/min/1.7 3m2 [facility] BUN/CREATININE RATIO 15 6 - 22 (calc) [facility] SODIUM 141 135 - 146 mmol/L [facility] POTASSIUM 4.9 3.5 - 5.3 mmol/L [facility] CHLORIDE 109 98 - 110 mmol/L [facility] CARBON DIOXIDE 23 20 - 32 mmol/L [facility] CALCIUM 9.5 8.6 - 10.4 mg/dL [facility] PROTEIN, TOTAL 6.8 6.1 - 8.1 g/dL [facility] ALBUMIN 4.3 3.6 - 5.1 g/dL [facility] GLOBULIN 2.5 1.9 - 3.7 g/dL (calc) [facility] ALBUMIN/GLOBULIN RATIO 1.7 1.0 - 2.5 (calc) [facility] BILIRUBIN, TOTAL 0.3 0.2 - 1.2 mg/dL [facility] ALKALINE PHOSPHATASE 66 37 - 153 U/L [facility] AST 16 10 - 35 U/L [facility] ALT 9 6 - 29 U/L [facility] Blood BLOOD SPECIMEN / Unknown 12/29/2024 10:17 AM CDT 12/29/2024 10:18 AM CDT Stacia Osborne MD CHEMISTRY Final Result [facility] [address] [place] [address], [facility] [address] [place] [address] from Last 3 Months Insurance MEDICARE PART A HB ONLY MEDICARE PART B HB ONLY MR BC [place] [employer] [place] [employer] [place] PB ONLY Advance Directives * Full Code (Latest Code Status on File) Date Activated Date Inactivated Comments 11/26/2014 10:06 AM 11/26/2014 2:52 PM Care Teams Reed Cleaner Relationship Specialty Start Date End Date Skylar Naranjo MD [address] [place] [address] PCP - General Internal Medicine 11/21/21
--- OUTSIDE RECORDS SUMMARY | 2025-03-23 12:37 | XMS_ITS | Encounter Summary ---
Author Organization [facility] Address [address] [place] [address] Care Team Providers Care Semiconductor Bonder Name Role Phone Elsewhere, Pcp Primary Care Provider Unavailabl e Encounter Details Date Type Department Care Team (Late st Contact Info) Description 02/10/2025 Orders Only Division of Nephrology and Hypertension in [place], [place] [address] [place] [address] External, Ordering ProviderJairo Social History Tobacco Use Types Packs/Day Years [...] place to sleep or slept in a custodial (including now)? No 06/06/2021 Education Answer Date Recorded What is the highest level of school you have completed or the highest degree you have received? Master's degree (e.g., MA, MS, Stacey, MEd, [employer], MARTHA) 04/18/2019 Comments No Sex and Gender Information Value Date Recorded Sex Assigned at Female 06/06/2021 10:52 AM LIME KILN AND RECAUSTICIZING OPERATOR Legal Sex Female 11:40 PM LIME KILN AND RECAUSTICIZING OPERATOR Gender Identity Female 05/30/2017 9:25 AM LIME KILN AND RECAUSTICIZING OPERATOR Sexual Orientation Straight 05/30/2017 9: 25 AM LIME KILN AND RECAUSTICIZING OPERATOR documented as of this encounter Plan of Treatment Not on file documented as of this encounter Procedures Procedure Name Priority Date/Time Associated Diagnosis Comments FOLATE, S Routine 02/10/2025 9:10 AM CDT documented in this encounter Results * Folate (02/10/2025 9:10 AM CDT) EXT Folate, S >22.3 >=5.9 ng/mL SCANNED REPORT 02/10/2025 9:10 AM CDT Narrative SCANNED REPORT - 02/12/2025 8:02 AM CDT External results verified in Extract by Kim Gregory on 02/12/2025 at 08:00 AM. us Ordering Provider External M.D. LAB BLOOD ADD-ON Final Result SCANNED REPORT documented in this encounter Visit Diagnoses Not on filedocumented in this encounter Additional Health Concerns Assessment Noted Time PHQ-9 Depression Total Score: 0 05/30/20 17 9:36 AM LIME KILN AND RECAUSTICIZING OPERATOR documented as of this encounter Care Teams Semiconductor Bonder Relationship Specialty Start Date End Date Elsewhere, Pcp PCP - General Internal Medicine 04/12/22 documented as of this encounter
--- OUTSIDE RECORDS SUMMARY | 2025-03-23 12:37 | XMS_ITS | Clinical Summary ---
Author Organization [facility] Address [address] [place] [address] Care Team Providers Care French Comber Name Role Phone Elsewhere, Pcp Primary Care Provider Unavailabl e Source Comments Patient records contain information from all sites at [facility]. For routine questions regarding patient records, call [phone] during business hours, M-F 8:00 AM - 5:00 PM Central Time. Record requests for emergency care only can be directed to [phone] at any time.[facility] Allergies Active Allergy Reactions Criticality Noted Date Comments No Known Allergies Other (see comments) 010 Cerner listed no reactions Medications * This document contains information received from the source organization and may not represent a complete record from that organization. MULTIVITAMIN ORAL Take 1 tablet by mouth daily. 10/20/2009 Active acetaminophen (TYLENOL EXTRA STRENGTH) 500 mg tablet Take 1 tablet by mouth as needed. 05/16/2017 Active amLODIPine (NORVASC) 5 mg tabletIndicatio ns:Hypertension And Chronic Kidney Disease Stage 4 (HCC) Take 1 tablet (5 mg total) by mouth daily. 90 tablet 3 06/08/2021 Active QUEtiapine (SEROquel) 100 mg tabletIndicatio ns:Bipolar I Disorder (HCC) TAKE 2 TABLETS (200 MG) BY MOUTH AT BEDTIME. 180 tablet 08/12/2021 Active atorvastatin (LIPITOR) 10 mg tabletIndicatio ns:Hypercholest erolemia TAKE ONE TABLET BY MOUTH EVERY DAY 90 tablet 3 08/31/2021 Active divalproex (DEPAKOTE ER) 250 mg 24 hr tabletIndicatio ns:Bipolar I Disorder (HCC) TAKE 4 TABLETS (1,000 MG) BY MOUTH DAILY. 360 tablet 3 08/31/2021 Active levothyroxine (SYNTHROID, LEVOTHROID) 50 mcg tabletIndicatio ns:Hypothyroidi sm Primary TAKE ONE TABLET BY MOUTH EVERY DAY 90 tablet 3 08/31/2021 Active polyethylene glycol (MIRALAX) 17 gram/dose oral powderIndicatio ns:Constipation MIX 17GMS IN 80Z OF LIQUID AND DRINK TWICE DAILY 1530 g 3 10/10/2021 Active Active Problems Problem Noted Date Diagnosed Date Obesity Body Mass Index 30-39.9 Adult 05/26/2021 Chronic Kidney Disease Stage 4 Glomerular Filtration Rate 15-29 05/26/2020 Hyperparathyroidism Renal Secondary 05/26/2020 Hypercholesterolemia 04/21/2019 Anemia Of Chronic Renal Disease 10/23/2018 Constipation 04/10/2018 Hypertensive Chronic Kidney Disease With Stage 1 Through Stage 4 Chronic Kidney Disease, Or Unspecified Chronic Kidney Disease 05/30/2017 Assessment & Plan (04/23/2018 1:45 PM GROUND INSTRUCTOR ADVANCED): Referral to Nephrology 04/23/2018 Hypothyroidism Primary 05/30/2017 Bipolar I Disorder 05/16/2017 Resolved Problems Problem Noted Date Diagnosed Date Resolved Date Atrophy Vagina Due To Estrogen Deficiency 12/26/2018 04/22/2019 Fatigue 05/30/2017 04/10/2018 Bipolar Disorder 08/10/2016 04/10/2018 Overview (10/31/2016): Bipolar Disorder NOS Anxiety Generalized Disorder 07/19/2016 04/17/2018 Chronic Kidney Disease Stage 3 Glomerular Filtration Rate 30 To 59 02/17/2016 04/22/2019 Overview (10/31/2016): Chronic Renal Failure Stage III GFR 30-59 Hypertension 10/21/2009 05/30/2017 Overview (10/31/2016): HTN [Hypertension] Encounters Date Type Department Care Team Description 02/17/2025 9:00 AM CDT External Outreach Division of Nephrology and Hypertension in [place], [place] [address] [place] [address] Lobo Degroot Jr., D.O. Chronic Kidney Disease Stage 4 Glomerular Filtration Rate 15-29 (HCC) (Primary Dx); Hypertensive Chronic Kidney Disease With Stage 1 Through Stage 4 Chronic Kidney Disease, Or Unspecified Chronic Kidney Disease; Hyperparathyroidism Renal Secondary (HCC); Hypothyroidism Primary; Anemia Of Chronic Renal Disease; Bipolar I Disorder (HCC) 02/10/2025 Orders Only Division of Nephrology and Hypertension in [place], [place] [address] [place] [address] External, Ordering Provider, Jairo 02/10/2025 Orders Only Division of Nephrology and Hypertension in [place], [place] [address] [place] [address] External, Ordering Provider, MFrancesco 02/10/2025 Orders Only Division of Nephrology and Hypertension in [place], [place] [address] [place] [address] External, Ordering Provider, Jairo 02/10/2025 Orders Only Division of Nephrology and Hypertension in [place], [place] [address] [place] [address] External, Ordering Provider, Jairo from Last 3 Months Immunizations Immunization Administration Dates Next Due DT, Pediatric 11/24/2003 Influenza high dose QV(65 ye ars or older) (PF) 03/11/2021,02/12/2020 Influenza, Unspecified 03/29/2016,2012,03/24/2010,2008,04/26/2005 PCV13 11/04/2014 PPSV23 10/31/2016 RZV (SHINGRIX) 02/12/2020,04/15/2019 Td (Adult), adsorbed 11/24/2003 Tdap 11/04/2014 influenza trivalent high dos e (HD)(PF) 04/15/2019,04/02/2018 Family History Medical History Relation Name Comments Heart disease Father Pancreatic cancer Father Breast cancer (in one breast) Sister Relation Name Status Comments Father (Age [...] place to sleep or slept in a fpc (including now)? No 06/06/2021 Education Answer Date Recorded What is the highest level of school you have completed or the highest degree you have received? Master's degree (e.g., MA, MS, Stacey, MEd, CAGE CLERK, MARTHA) 04/18/2019 Comments No Sex and Gender Information Value Date Recorded Sex Assigned at Female 06/06/2021 10:52 AM GROUND INSTRUCTOR ADVANCED Legal Sex Female 11:40 PM GROUND INSTRUCTOR [employer]VANCED Gender Identity Female 05/30/2017 9:25 AM GROUND INSTRUCTOR ADVANCED Sexual Orientation Straight 05/30/2017 9: 25 AM GROUND INSTRUCTOR ADVANCED Last Filed Vital Signs Vital Sign Reading Time Taken Comments Blood Pressure 122/82 02/17/2025 9:09 AM CDT Pulse 75 02/17/2025 9:09 AM CDT Temperature 36.5 C (97.7 F) 06/09/2021 9:41 AM GROUND INSTRUCTOR ADVANCED Respiratory Rate 16 05/26/2021 10:37 AM GROUND INSTRUCTOR ADVANCED Oxygen Saturation - - Inhaled Oxygen Concentration - - Weight 89 kg (196 lb 3.4 oz) 02/17/2025 9:09 AM CDT Height 158.7 cm (5' 2.48) 02/17/2025 9:09 AM CD T Body Mass Index 35.34 02/17/2025 9:09 AM CDT Plan of Treatment Health Maintenance Due Date Last Done Comments Hepatitis C Screening 1950 Office Visit for Blood Pressure Check / Re-check 1950 Thyroid Stimulating Hormone (TSH) test for thyroid function 04/26/2022 04/26/2021, 05/24/2020, 04/21/2019, Additional history exists Depression Screening (Annual PHQ-2) 06/11/2024 Fall Risk Screen (Annual) 06/11/2024 COVID-19 Vaccine ( season) 2025 03/07/2024, 12/06/2023, 03/16/2023, Additional history exists Influenza Vaccine (#1) 2025 , 04/25/2022, 03/11/2021, Additional history exists Glucose Test for Med Monitoring 02/10/2026 02/10/2025, 12/29/2024, 08/18/2024, Additional history exists DTaP,Tdap,and Td Vaccines (5 - Td or Tdap) 05/27/2034 05/27/2024, 11/04/2014, 11/24/2003, Additional history exists Colonoscopy Discontinued 11/26/2014, 02/27/2003 Pneumococcal vaccine (50+ years) Completed 10/31/2016, 11/04/2014 Zoster Vaccines Completed 02/12/2020, 04/15/2019 Mammogram Discontinued 05/27/2020, 04/11, 04/23/2018, Additional history exists Cologuard Discontinued 06/01/2020 Colorectal Cancer Surveillance Discontinued RSV vaccine - (32-36 weeks) or 50+ years Completed 05/10/2023 CT Colonography Discontinued IPV Vaccines Aged Out No longer eligi ble based on patient's age to complete this topic Procedures Procedure Name Priority Date/Time Associated Diagnosis Comments EXT OUTSIDE LAB TESTS Routine 02/10/2025 9:10 AM CDT FOLATE, S Routine 02/10/2025 9:10 AM CDT ALBUMIN, RANDOM, U Routine 02/10/2025 9: 10 AM CDT T4 (THYROXINE), FREE, S Routine 02/10/2025 9:10 AM CDT IRON AND TOT IRON-BINDING CAPACITY, S/P Routine 02/10/2025 9:10 AM CDT PARATHYROID HORMONE (PTH), S Routine 02/10/2025 9:10 AM CDT VITAMIN B12 ASSAY, S Routine 02/10/2025 9:10 AM CDT FERRITIN, S Routine 02/10/2025 9:10 AM CDT LIPID PANEL, S Routine 02/10/2025 9:10 AM CDT C-REACTIVE PROTEIN (CRP), S/P Routine 02/10/2025 9:10 AM CDT PHOSPHORUS (INORGANIC), S Routine 02/10/2025 9:10 AM CDT URIC ACID, S/P Routine 02/10/2025 9:10 AM CDT COMPREHENSIVE METABOLIC PANEL, S/P Routine 02/10/2025 9:10 AM CDT EXTP URINALYSIS WITH MICROSCOPY, URINE Routine 02/10/2025 9:10 AM CDT CBC WITH DIFFERENTIAL, B Routine 02/10/2025 9:10 AM CDT THYROID-STIMULATING HORMONE-SENSITIVE (S-TSH) Routine 04/26/2021 10:11 AM GROUND INSTRUCTOR ADVANCED Hypothyroidism COLOGUARD Routine 06/01/2020 9:30 AM GROUND INSTRUCTOR ADVANCED Screening Cancer Colon BI BREAST SCREENING BILATERAL RAD - Routine (most inpatients and all outpatients) 05/27/2020 9:50 AM GROUND INSTRUCTOR ADVANCED Screening Mammogram Breast Cancer from Last 3 Months or Most Recently Relevant to Health Maintenance Results * EXT Outside Lab Tests (02/10/2025 9:10 AM CDT) Pathologist [facility] EXT Miscellaneous See scanned report [facility] 02/10/2025 9:10 AM CDT Narrative [facility] - 02/12/2025 10:21 AM CDT External results verified in Extract by [place] Gregory on 02/12/2025 at 10:20 AM. us Ordering Provider External M.D. LAB BLOOD NON AD D-ON Final Result [facility] [address] [place] [address] * (ABNORMAL) EXT Urinalysis with Microscopy, Urine (02/10/2025 9:10 AM CDT) EXT Color Yellow Yellow [facility] EXT Appearance, Urine Clear Clear [facility] EXT Glucose Qualitative, Urine Negative Negative [facility] EXT Bilirubin, Urine Negative Negative [facility] EXT Ketones, POCT, Urine Negative Negative [facility] EXT Specific [place], POCT, Urine 1.010 1.000 - 1.030 [facility] EXT Blood, Urine Negative Negative [facility] EXT pH, Random, Urine 7.0 5.0 - 8.5 [facility] EXT Protein, Urine Negative Negative [facility] EXT Urobilinogen, Urine 0.2 0.2 - 1.0 [facility] EXT Nitrite, Urine Negative Negative [facility] EXT Leukocyte Esterase, Urine 1+(A) Negative [facility] EXT Red Blood Cells, U 0-2 0 - 2 [facility] EXT White Blood Cells, U 2-5 0 - 5 [facility] EXT Squamous Cells Few None-Few [facility] EXT Bacteria Few(H) None [facility] 02/10/2025 9:10 AM CDT Narrative [facility] - 02/10/2025 10:22 AM CDT Source result document attached to Order Number [id number] (CBC WITH DIFFERENTIAL, B) dated 02/10/2025. External results verified in Extract by [place] Gregory on 02/10/2025 at 10:20 AM. us Ordering Provider External M.DGarrett LAB URINE ORDERA BLES Final Result Performing Organization Address [facility] Co de Phone Number [facility] [address] [phone] * (ABNORMAL) Lipid Panel (02/10/2025 9:10 AM CDT) EXT Triglycerides, S 183(H) 40 - 149 mg/dL [facility] EXT Cholesterol, Total, S 182 90 - 199 mg/dL [facility] EXT Calculated LDL 67 <100 mg/dL [facility] EXT Cholesterol, HDL, S 78 >=50 mg/dL [facility] 02/10/2025 9:10 AM CDT Narrative [email or web address] - 02/10/2025 2:04 PM CDT Source result document attached to Order Number [id number] (COMPREHENSIVE METABOLIC PANEL, BLOOD) dated 02/10/2025. External results verified in Extract by [place] Gregory on 02/10/2025 at 02:01 PM. us Ordering Provider External Jairo LAB BLOOD ADD-ON Final Result Performing Organization Address [facility]/ZIP Co de Phone Number [facility] [address] [place] [address], [facility] [phone] * Iron and Total Iron-Binding Capacity (02/10/2025 9:10 AM CDT) EXT Iron 84 37 - 170 ug/dL [facility] EXT Total Iron Binding Capacity 289 265 - 497 ug/dL [facility] 02/10/2025 9:10 AM CDT Narrative [facility] - 02/10/2025 2:04 PM CDT Source result document attached to Order Number [id number] (COMPREHENSIVE METABOLIC PANEL, BLOOD) dated 02/10/2025. External results verified in Extract by [place] Gregory on 02/10/2025 at 02:01 PM. us Ordering Provider External M.D. LAB BLOOD ADD-ON Final Result Performing Organization Address [facility] de Phone Number [email or web address] [address] [place] [address] * (ABNORMAL) Albumin, Random, Urine (02/10/2025 9:10 AM CDT) EXT Creatinine, Urine 49.0 mg/dL [facility] EXT Microalbumin-R andom, U 2 mg/dL [facility] EXT Albumin/Creati nine Ratio 40(H) 0 - 30 [facility] 02/10/2025 9:10 AM CDT Narrative [facility] - 02/10/2025 2:04 PM CDT Source result document attached to Order Number [id number] (COMPREHENSIVE METABOLIC PANEL, BLOOD) dated 02/10/2025. External results verified in Extract by [place] Gregory on 02/10/2025 at 02:01 PM. us Ordering Provider External M.D. LAB URINE ORDERA BLES Final Result Performing Organization Address [facility] de Phone Number [facility] [address] [place] [address] * (ABNORMAL) CBC with Differential, Blood (02/10/2025 9:10 AM CDT) [facility] EXT Leukocytes 4.98 4.50 - 11.00 K/uL [facility] EXT RBC 3.82(L) 4.00 - 5.20 m/uL [facility] EXT Hemoglobin 11.4(L) 12.0 - 16.0 gm/dL [facility] EXT Hematocrit 36.0 33.0 - 51.0 % [facility] EXT MCV 94 80 - 100 fL [facility] EXT Platelet Count 143 140 - 440 K/uL [facility] 02/10/2025 9:10 AM CDT Donovan [facility] - 02/10/2025 10:22 AM CDT External results verified in Extract by [place] Gregory on 02/10/2025 at 10:20 AM. us Ordering Provider External Jairo LAB BLOOD ADD-ON Final Result Performing Organization Address City/[facility]/ZIP Co de Phone Number [facility] [address] [place] [address] * CRP (C-Reactive Protein) (02/10/2025 9:10 AM CDT) [facility] EXT C-Reactive Protein Quantative 0.5 0.5 - 1.0 mg/dL [facility] 02/10/2025 9:10 AM CDT Donovan [facility] - 02/10/2025 2:04 PM CDT Source result document attached to Order Number [id number] (COMPREHENSIVE METABOLIC PANEL, BLOOD) dated 02/10/2025. External results verified in Extract by [place] Gregory on 02/10/2025 at 02:01 PM. us Ordering Provider External Jairo LAB BLOOD ADD-ON Final Result [facility] [address] [place], [place] [address] [phone] * Uric Acid (02/10/2025 9:10 AM CDT) EXT Uric Acid, S 7.0 2.2 - 8.4 mg/dL [facility] 02/10/2025 9:10 AM CDT Narrative [facility] - 02/10/2025 2:04 PM CDT Source result document attached to Order Number [id number] (COMPREHENSIVE METABOLIC PANEL, BLOOD) dated 02/10/2025. External results verified in Extract by [place] Gregory on 02/10/2025 at 02:01 PM. us Ordering Provider External M.DGarrett LAB BLOOD ADD-ON Final Result Performing Organization Address [facility]/ZIP Co de Phone Number [facility] [address] [phone] * T4 (Thyroxine), Free (02/10/2025 9:10 AM CDT) EXT T4 (Thyroxine), Free, S 0.70 0.70 - 1.85 ng/dL [facility] 02/10/2025 9:10 AM CDT Narrative [email or web address] - 02/10/2025 2:04 PM CDT Source result document attached to Order Number [id number] (COMPREHENSIVE METABOLIC PANEL, BLOOD) dated 02/10/2025. External results verified in Extract by [place] Gregory on 02/10/2025 at 02:01 PM. us Ordering Provider External M.DGarrett LAB BLOOD ADD-ON Final Result Performing Organization Address City/[facility]/ZIP Co de Phone Number [email or web address] [address] [phone] * Phosphorus Inorganic (02/10/2025 9:10 AM CDT) EXT Phosphorus (Inorganic), S 3.6 2.5 - 4.5 mg/dL [facility] 02/10/2025 9:10 AM CDT Narrative [facility] - 02/10/2025 2:04 PM CDT Source result document attached to Order Number [id number] (COMPREHENSIVE METABOLIC PANEL, BLOOD) dated 02/10/2025. External results verified in Extract by [place] Gregory on 02/10/2025 at 02:01 PM. us Ordering Provider External M.D. LAB BLOOD ADD-ON Final Result Performing Organization Address [facility] Co de Phone Number [facility] [address] [place] [address] * (ABNORMAL) Parathyroid Hormone (PTH) (02/10/2025 9:10 AM CDT) Parathyroid Hormone (PTH) 90.7(H) 14.2 - 75.2 pg/mL [facility] 02/10/2025 9:10 AM CDT Narrative [email or web address] - 02/10/2025 2:04 PM CDT Source result document attached to Order Number [id number] (COMPREHENSIVE METABOLIC PANEL, BLOOD) dated 02/10/2025. External results verified in Extract by [place] Gregory on 02/10/2025 at 02:01 PM. us Ordering Provider External M.D. LAB BLOOD ADD-ON Final Result Performing Organization Address [facility]/ZIP Co de Phone Number [facility] [address] [place] [address] * Folate (02/10/2025 9:10 AM CDT) EXT Folate, S >22.3 >=5.9 ng/mL SCANNED REPORT 02/10/2025 9:10 AM CDT Narrative SCANNED REPORT - 02/12/2025 8:02 AM CDT External results verified in Extract by Kim Gregory on 02/12/2025 at 08:00 AM. us Ordering Provider External M.Jairo LAB BLOOD ADD-ON Final Result Performing Organization Address City/[facility]/ZIP Co de Phone Number SCANNED REPORT * Ferritin (02/10/2025 9:10 AM CDT) EXT Ferritin, S 90.6 11.1 - 264.0 ng/mL [facility] 02/10/2025 9:10 AM CDT Narrative [email or web address] - 02/10/2025 2:04 PM CDT Source result document attached to Order Number [id number] (COMPREHENSIVE METABOLIC PANEL, BLOOD) dated 02/10/2025. External results verified in Extract by [place] Gregory on 02/10/2025 at 02:01 PM. us Ordering Provider External Jairo LAB BLOOD ADD-ON Final Result Performing Organization Address [facility] Co de Phone Number [email or web address] [address] [place] [address] * (ABNORMAL) Vitamin B12 Assay (02/10/2025 9:10 AM CDT) EXT Vitamin B12 Assay, S >1,000(H) 243 - 894 pg/mL [facility] 02/10/2025 9:10 AM CDT Narrative [facility] - 02/10/2025 2:04 PM CDT Source result document attached to Order Number [id number] (COMPREHENSIVE METABOLIC PANEL, BLOOD) dated 02/10/2025. External results verified in Extract by Kim Gregory on 02/10/2025 at 02:01 PM. us Ordering Provider External Jairo LAB BLOOD ADD-ON Final Result [facility] [address] [place] [address], [facility] [phone] * (ABNORMAL) Comprehensive Metabolic Panel (02/10/2025 9:10 AM CDT) EXT Sodium 141 135 - 149 mmol/L [facility] EXT Potassium 4.6 3.6 - 5.1 mmol/L [facility] EXT Chloride 108 96 - 114 mmol/L [facility] EXT CO2 23 20 - 32 mmol/L [facility] EXT Anion Gap 10 7 - 15 mEq/L [facility] EXT BUN (Blood Urea Nitrogen) 39(H) 7 - 30 mg/dL [facility] EXT Creatinine 2.5(H) 0.5 - 1.5 mg/dL [facility] EXT Estimated GFR (eGFR) 19 ml/min [facility] EXT Calcium, Total 9.9 8.4 - 10.6 mg/dL [facility] EXT Glucose 101 60 - 115 mg/dL [facility] EXT Albumin 4.3 3.3 - 5.0 g/dL [facility] EXT AST 30 12 - 35 U/L [facility] EXT ALT 14 4 - 35 U/L [facility] 02/10/2025 9:10 AM CDT Narrative [facility] - 02/10/2025 2:04 PM CDT External results verified in Extract by Kim Gregory on 02/10/2025 at 02:01 PM. us Ordering Provider External M.Jairo LAB BLOOD ADD-ON Final Result [facility] [address] [place] [address], [facility] [phone] * S-TSH (Thyroid-Stimulating Hormone - Sensitive) (04/26/2021 10:11 AM GROUND INSTRUCTOR ADVANCED) TSH, Sensitive 1.6 0.3 - 4.2 mIU/L 04/26/2021 2:09 PM GROUND INSTRUCTOR ADVANCED OWAT Blood (Blood, Venous) 04/26/2021 10:11 AM GROUND INSTRUCTOR ADVANCED 04/26/2021 1:02 PM GROUND INSTRUCTOR ADVANCED Carey Mayito Arriaga APRN, C.N.P., R.N. LAB BLOOD ADD- ON Final Result [facility] [address] [place] [address], [place] OWAT [facility] [place] [address] [place] [address] * Cologuard (06/01/2020 9:30 AM GROUND INSTRUCTOR ADVANCED) Result Negative Not Applicable 06/05/2020 8:18 AM GROUND INSTRUCTOR ADVANCED EXLI Comment: A negative result indicates a [...] screened with both Cologuard and colonoscopy. (Laura Kessler et al, N Engl J Med 2014;370(14):4269-7144) The normal value (reference range) for this assay is negative. COLOGUARD RE-SCREENING RECOMMENDATION: Periodic routine colorectal cancer screening is an important part of preventive healthcare for asymptomatic persons at average risk for colorectal cancer. Following a negative Cologuard result, the [place] [employer] and U.S. Multi-Society Task Force screening guidelines recommend a Cologuard re-screening interval of 3 years. References: [place] [employer] (ACS). Colorectal cancer prevention and early detection. [place], [place]: [place] [employer]; [updated 2015Oct 02]. https://www.cancer.org/cancer/rbexo-ceuvpb-ntmuex/detection- diagnosis-staging/acs-recommendations.html. Accessed February 08, 2018; Garrison DK, Hayden CR, Rick EdmondK, Colorectal Cancer Screening: Recommendations for Physicians and Patients from the U.S. Multi-Society Task Force on Colorectal Cancer Screening, Am J Gastroenterology 2017; 112:7956-1518. TEST TYPE: Composite algorithmic analysis of stool DNA-biomarkers with hemoglobin immunoassay. Quantitative values of individual biomarkers are not reportable [...] interval of every 3 years by the [place] [employer] and U.S. Multi-Society Task Force. [...] can be accessed at the following location: www.InPlace/results. Additional description of the Cologuard test process, warnings and precautions can be found at www.cologuardtest.com. Rx only. Stool (Stool) 06/01/2020 9:3 0 AM GROUND INSTRUCTOR ADVANCED 06/02/2020 9:01 AM GROUND INSTRUCTOR ADVANCED us Carey Arriaga APRN, C.N.P., R.N. LAB BODY FLUID S AND STOOLS ORDERABLES Final Result [facility] [address] [place] [address] [place] [email or web address] [address] [facility], [address] [place] [address] * BI Breast Screening Bilateral (05/27/2020 9:50 AM GROUND INSTRUCTOR ADVANCED) Anatomical Region Laterality Modality Breast, Breast Imaging RST L OS, Breast Imaging ARZ LOS, Breast Imaging FLA LOS Bilateral Mammography 05/27/2020 9:52 AM GROUND INSTRUCTOR ADVANCED Impressions 05/27/2020 9:53 AM GROUND INSTRUCTOR ADVANCED Negative. RECOMMENDATION: Annual Screening Mammogram ASSESSMENT: BI-RADS: 1: Negative. Narrative 05/27/2020 9:53 AM GROUND INSTRUCTOR ADVANCED EXAM: BI BREAST SCREENING BILATERAL Current study was evaluated with a Computer Aided Detection (CAD) system. INDICATION: Screening mammogram. COMPARISON: Prior exam(s) were available and reviewed for comparison. DENSITY: c. The breast(s) are heterogeneously dense, which may obscure small masses. FINDINGS: No mammographic findings of malignancy. Procedure Note Brian [...] BI-RADS: 1: Negative. Carey Arriaga APRN, C.N.P., R.N. IM BI PROCEDU RES Final Result from Last 3 Months or Most Recently Relevant to Health Maintenance Insurance MEDICARE [facility] Advance Directives For more information, please contact: [phone] Documents on File Type Date Recorded Patient Executive Kitchen Manager Expl anation Advance Directives 12/01/2013 12:00 AM Leg acy document. See document viewer. Care Teams French Comber Relationship Specialty Start Date End Date Elsewhere, Pcp PCP - General Internal Medicine 04/12/22
--- OUTSIDE RECORDS SUMMARY | 2025-03-23 12:37 | XMS_ITS | Encounter Summary ---
Author Organization [facility] Address [address] [place] [address] Care Team Providers Care Powder Coater Name Role Phone Elsewhere, Pcp Primary Care Provider Unavailabl e Encounter Details Date Type Department Care Team (Late st Contact Info) Description 02/10/2025 Orders Only Division of Nephrology and Hypertension in [place], [place] [address] [place] [address] External, Ordering ProviderJairo Social History Tobacco Use [...] place to sleep or slept in a mcc (including now)? No 06/06/2021 Education Answer Date Recorded What is the highest level of school you have completed or the highest degree you have received? 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) 04/18/2019 Comments No Sex and Gender Information Value Date Recorded Sex Assigned at Female 06/06/2021 10:52 AM NURSE CONSULTANT Legal Sex Female 11:40 PM NURSE CONSULTANT Gender Identity Female 05/30/2017 9:25 AM NURSE CONSULTANT Sexual Orientation Straight 05/30/2017 9: 25 AM NURSE CONSULTANT documented as of this encounter Plan of Treatment Not on file documented as of this encounter Procedures Procedure Name Priority Date/Time Associated Diagnosis Comments EXT OUTSIDE LAB TESTS Routine 02/10/2025 9:10 AM CDT documented in this encounter Results * EXT Outside Lab Tests (02/10/2025 9:10 AM CDT) EXT Miscellaneous See scanned report [facility] 02/10/2025 9:[address] [facility] - 02/12/2025 10:21 AM CDT External results verified in Extract by Kim Gregory on 02/12/2025 at 10:20 AM. us Ordering Provider External Jairo LAB BLOOD NON AD D-ON Final Result [facility] [address] [phone] documented in this encounter Visit Diagnoses Not on filedocumented in this encounter Additional Health Concerns Assessment Noted Time PHQ-9 Depression Total Score: 0 05/30/20 17 9:36 AM NURSE CONSULTANT documented as of this encounter Care Teams Powder Coater Relationship Specialty Start Date End Date Elsewhere, Pcp PCP - General Internal Medicine 04/12/22 documented as of this encounter
--- OUTSIDE RECORDS SUMMARY | 2025-03-23 12:38 | XMS_ITS | Encounter Summary ---
Author Organization [facility] Address [address] [place] [address] Care Team Providers Care Control Room Operator Name Role Phone Elsewhere, Pcp Primary Care Provider Unavailabl e Encounter Details Date Type Department Care Team (Late st Contact Info) Description 02/10/2025 Orders Only Division of Nephrology and Hypertension in [place], [place] [address] [place] [address] External, Ordering ProviderJairo Social History Tobacco Use [...] place to sleep or slept in a retirement (including now)? No 06/06/2021 Education Answer Date Recorded What is the highest level of school you have completed or the highest degree you have received? Master's degree (e.g., MA, MS, Stacey, MEd, TRAINING DEVELOPER, MARTHA) 04/18/2019 Comments No Sex and Gender Information Value Date Recorded Sex Assigned at Female 06/06/2021 10:52 AM SUPERVISOR SHED WORKERS Legal Sex Female 11:40 PM SUPERVISOR SHED WORKERS Gender Identity Female 05/30/2017 9:25 AM SUPERVISOR SHED WORKERS Sexual Orientation Straight 05/30/2017 9: 25 AM SUPERVISOR SHED WORKERS documented as of this encounter Plan of Treatment Not on file documented as of this encounter Procedures Procedure Name Priority Date/Time Associated Diagnosis Comments EXTP URINALYSIS WITH MICROSCOPY, URINE Routine 02/10/2025 9:10 AM CDT CBC WITH DIFFERENTIAL, B Routine 02/10/2025 9:10 AM CDT documented in this encounter Results * (ABNORMAL) EXT Urinalysis with Microscopy, Urine (02/10/2025 9:10 AM CDT) EXT Color Yellow Yellow [facility] EXT Appearance, Urine Clear Clear [facility] EXT Glucose Qualitative, Urine Negative Negative [facility] EXT Bilirubin, Urine Negative Negative [facility] EXT Ketones, POCT, Urine Negative Negative [facility] EXT Specific Jackson, POCT, Urine 1.010 1.000 - 1.030 [facility] EXT Blood, Urine Negative Negative [facility] EXT pH, Random, Urine 7.0 5.0 - 8.5 [facility] EXT Protein, Urine Negative Negative [facility] EXT Urobilinogen, Urine 0.2 0.2 - 1.0 [facility] EXT Nitrite, Urine Negative Negative [facility] EXT Leukocyte Esterase, Urine 1+(A) Negative [facility] EXT Red Blood Cells, U 0-2 0 - 2 [facility] EXT White Blood Cells, U 2-5 0 - 5 [facility] EXT Squamous Cells Few None-Few [facility] EXT Bacteria Few(H) None [facility] 02/10/2025 9:10 AM CDT Narrative [facility] - 02/10/2025 10:22 AM CDT Source result document attached to Order Number [id number] (CBC WITH DIFFERENTIAL, B) dated 02/10/2025. External results verified in Extract by Kim Gregory on 02/10/2025 at 10:20 AM. us Ordering Provider External Jairo LAB URINE ORDERA BLES Final Result [facility] [address] [place] [address], [facility] [phone] * (ABNORMAL) CBC with Differential, Blood (02/10/2025 9:10 AM CDT) EXT Leukocytes 4.98 4.50 - 11.00 K/uL [facility] EXT RBC 3.82(L) 4.00 - 5.20 m/uL [facility] EXT Hemoglobin 11.4(L) 12.0 - 16.0 gm/dL [facility] EXT Hematocrit 36.0 33.0 - 51.0 % [facility] EXT MCV 94 80 - 100 fL [facility] EXT Platelet Count 143 140 - 440 K/uL [facility] 02/10/2025 9:10 AM CDT Narrative [facility] - 02/10/2025 10:22 AM CDT External results verified in Extract by Kim Gregory on 02/10/2025 at 10:20 AM. us Ordering Provider External M.DGarrett LAB BLOOD ADD-ON Final Result [facility] [address] [place] [address] documented in this encounter Visit Diagnoses Not on filedocumented in this encounter Additional Health Concerns Assessment Noted Time PHQ-9 Depression Total Score: 0 05/30/20 17 9:36 AM SUPERVISOR SHED WORKERS documented as of this encounter Care Teams Control Room Operator Relationship Specialty Start Date End Date Elsewhere, Pcp PCP - General Internal Medicine 04/12/22 documented as of this encounter
--- OUTSIDE RECORDS SUMMARY | 2025-03-23 12:38 | XMS_ITS | Encounter Summary ---
Author Organization [facility] Address [address] [place] [address] Care Team Providers Care Office Machine Punch Operator Name Role Phone Elsewhere, Pcp Primary Care Provider Unavailabl e Encounter Details Date Type Department Care Team (Late st Contact Info) Description 02/10/2025 Orders Only Division of Nephrology and Hypertension in [place], [place] [address] [place] [address] External, Ordering ProviderJairo Social History Tobacco Use [...] place to sleep or slept in a detention (including now)? No 06/06/2021 Education Answer Date Recorded What is the highest level of school you have completed or the highest degree you have received? Master's degree (e.g., MA, MS, Stacey, MEd, SAMPLE CLERK, MARTHA) 04/18/2019 Comments No Sex and Gender Information Value Date Recorded Sex Assigned at Female 06/06/2021 10:52 AM INGOT SUPERVISOR Legal Sex Female 11:40 PM INGOT SUPERVISOR Gender Identity Female 05/30/2017 9:25 AM INGOT SUPERVISOR Sexual Orientation Straight 05/30/2017 9: 25 AM INGOT SUPERVISOR documented as of this encounter Plan of Treatment Not on file documented as of this encounter Procedures Procedure Name Priority Date/Time Associated Diagnosis Comments LIPID PANEL, S Routine 02/10/2025 9:10 AM CDT IRON AND TOT IRON-BINDING CAPACITY, S/P Routine 02/10/2025 9:10 AM CDT ALBUMIN, RANDOM, U Routine 02/10/2025 9: 10 AM CDT C-REACTIVE PROTEIN (CRP), S/P Routine 02/10/2025 9:10 AM CDT URIC ACID, S/P Routine 02/10/2025 9:10 AM CDT T4 (THYROXINE), FREE, S Routine 02/10/2025 9:10 AM CDT PHOSPHORUS (INORGANIC), S Routine 02/10/2025 9:10 AM CDT PARATHYROID HORMONE (PTH), S Routine 02/10/2025 9:10 AM CDT FERRITIN, S Routine 02/10/2025 9:10 AM CDT VITAMIN B12 ASSAY, S Routine 02/10/2025 9:10 AM CDT COMPREHENSIVE METABOLIC PANEL, S/P Routine 02/10/2025 9:10 AM CDT documented in this encounter Results * (ABNORMAL) Albumin, Random, Urine (02/10/2025 9:10 AM CDT) EXT Creatinine, Urine 49.0 mg/dL [facility] EXT Microalbumin-R andom, U 2 mg/dL [facility] EXT Albumin/Creati nine Ratio 40(H) 0 - 30 [facility] 02/10/2025 9:10 AM CDT Narrative [facility] - 02/10/2025 2:04 PM CDT Source result document attached to Order Number [id number] (COMPREHENSIVE METABOLIC PANEL, BLOOD) dated 02/10/2025. External results verified in Extract by Kim Gregory on 02/10/2025 at 02:01 PM. us Ordering Provider External M.DGarrett LAB URINE ORDERA BLES Final Result [employer] [facility] [facility] [address] [phone] * T4 (Thyroxine), Free (02/10/2025 9:10 AM CDT) EXT T4 (Thyroxine), Free, S 0.70 0.70 - 1.85 ng/dL [facility] 02/10/2025 9:10 AM CDT Narrative [employer] [facility] - 02/10/2025 2:04 PM CDT Source result document attached to Order Number [id number] (COMPREHENSIVE METABOLIC PANEL, BLOOD) dated 02/10/2025. External results verified in Extract by Kim Gregory on 02/10/2025 at 02:01 PM. us Ordering Provider Jesus Gill LAB BLOOD ADD-ON Final Result Performing Organization Address [facility] de Phone Number [employer] [facility] [address] [phone] * Iron and Total Iron-Binding Capacity (02/10/2025 9:10 AM CDT) EXT Iron 84 37 - 170 ug/dL [facility] EXT Total Iron Binding Capacity 289 265 - 497 ug/dL [facility] 02/10/2025 9:10 AM CDT Narrative [employer] [facility] - 02/10/2025 2:04 PM CDT Source result document attached to Order Number [id number] (COMPREHENSIVE METABOLIC PANEL, BLOOD) dated 02/10/2025. External results verified in Extract by Kim Gregory on 02/10/2025 at 02:01 PM. us Ordering Provider Jesus Gill LAB BLOOD ADD-ON Final Result Performing Organization Address [facility] de Phone Number [employer] [facility] [address] [phone] * (ABNORMAL) Parathyroid Hormone (PTH) (02/10/2025 9:10 AM CDT) Parathyroid Hormone (PTH) 90.7(H) 14.2 - 75.2 pg/mL [facility] 02/10/2025 9:10 AM CDT Narrative [employer] [facility] - 02/10/2025 2:04 PM CDT Source result document attached to Order Number [id number] (COMPREHENSIVE METABOLIC PANEL, BLOOD) dated 02/10/2025. External results verified in Extract by Kim Gregory on 02/10/2025 at 02:01 PM. us Ordering Provider External Jairo LAB BLOOD ADD-ON Final Result Performing Organization Address [facility] de Phone Number [facility] [address] [phone] * (ABNORMAL) Vitamin B12 Assay (02/10/2025 9:10 AM CDT) EXT Vitamin B12 Assay, S >1,000(H) 243 - 894 pg/mL [facility] 02/10/2025 9:10 AM CDT Narrative [facility] - 02/10/2025 2:04 PM CDT Source result document attached to Order Number [id number] (COMPREHENSIVE METABOLIC PANEL, BLOOD) dated 02/10/2025. External results verified in Extract by Kim Gregory on 02/10/2025 at 02:01 PM. us Ordering Provider External Jairo LAB BLOOD ADD-ON Final Result Performing Organization Address [facility] de Phone Number [facility] [address] [phone] * Ferritin (02/10/2025 9:10 AM CDT) EXT Ferritin, S 90.6 11.1 - 264.0 ng/mL [facility] 02/10/2025 9:10 AM CDT Narrative [employer] - 02/10/2025 2:04 PM CDT Source result document attached to Order Number [id number] (COMPREHENSIVE METABOLIC PANEL, BLOOD) dated 02/10/2025. External results verified in Extract by Kim Gregory on 02/10/2025 at 02:01 PM. us Ordering Provider Jesus Gill LAB BLOOD ADD-ON Final Result Performing Organization Address [facility] Co de Phone Number [employer] [facility] [address] [phone] * (ABNORMAL) Lipid Panel (02/10/2025 9:10 AM CDT) EXT Triglycerides, S 183(H) 40 - 149 mg/dL [facility] EXT Cholesterol, Total, S 182 90 - 199 mg/dL [facility] EXT Calculated LDL 67 <100 mg/dL [facility] EXT Cholesterol, HDL, S 78 >=50 mg/dL [facility] 02/10/2025 9:10 AM CDT Narrative [facility] - 02/10/2025 2:04 PM CDT Source result document attached to Order Number [id number] (COMPREHENSIVE METABOLIC PANEL, BLOOD) dated 02/10/2025. External results verified in Extract by Kim Gregory on 02/10/2025 at 02:01 PM. us Ordering Provider Jesus Gill LAB BLOOD ADD-ON Final Result Performing Organization Address [facility] de Phone Number [employer] [facility] [address] [phone] * CRP (C-Reactive Protein) (02/10/2025 9:10 AM CDT) EXT C-Reactive Protein Quantative 0.5 0.5 - 1.0 mg/dL [facility] 02/10/2025 9:10 AM CDT Narrative [employer] [facility] - 02/10/2025 2:04 PM CDT Source result document attached to Order Number [id number] (COMPREHENSIVE METABOLIC PANEL, BLOOD) dated 02/10/2025. External results verified in Extract by Kim Gregory on 02/10/2025 at 02:01 PM. us Ordering Provider Jesus Gill LAB BLOOD ADD-ON Final Result Performing Organization Address [facility] Phone Number [employer] [facility] [address] [place] [address] * Phosphorus Inorganic (02/10/2025 9:10 AM CDT) EXT Phosphorus (Inorganic), S 3.6 2.5 - 4.5 mg/dL [facility] 02/10/2025 9:10 AM CDT Narrative [employer] - 02/10/2025 2:04 PM CDT Source result document attached to Order Number [id number] (COMPREHENSIVE METABOLIC PANEL, BLOOD) dated 02/10/2025. External results verified in Extract by Kim Gregory on 02/10/2025 at 02:01 PM. us Ordering Provider Jesus Gill LAB BLOOD ADD-ON Final Result Performing Organization Address [facility] Phone Number [facility] [address] [place] [address] * Uric Acid (02/10/2025 9:10 AM CDT) EXT Uric Acid, S 7.0 2.2 - 8.4 mg/dL [facility] 02/10/2025 9:10 AM CDT Narrative [employer] [facility] - 02/10/2025 2:04 PM CDT Source result document attached to Order Number [id number] (COMPREHENSIVE METABOLIC PANEL, BLOOD) dated 02/10/2025. External results verified in Extract by Kim Gregory on 02/10/2025 at 02:01 PM. us Ordering Provider External M.D. LAB BLOOD ADD-ON Final Result [employer] [place] [address] [place] [address], [facility] [phone] * (ABNORMAL) Comprehensive Metabolic Panel (02/10/2025 9:10 AM CDT) EXT Sodium 141 135 - 149 mmol/L [facility] EXT Potassium 4.6 3.6 - 5.1 mmol/L [facility] EXT Chloride 108 96 - 114 mmol/L [facility] EXT CO2 23 20 - 32 mmol/L [facility] EXT Anion Gap 10 7 - 15 mEq/L [facility] EXT BUN (Blood Urea Nitrogen) 39(H) 7 - 30 mg/dL [facility] EXT Creatinine 2.5(H) 0.5 - 1.5 mg/dL [facility] EXT Estimated GFR (eGFR) 19 ml/min [facility] EXT Calcium, Total 9.9 8.4 - 10.6 mg/dL [facility] EXT Glucose 101 60 - 115 mg/dL [facility] EXT Albumin 4.3 3.3 - 5.0 g/dL [facility] EXT AST 30 12 - 35 U/L [facility] EXT ALT 14 4 - 35 U/L [facility] 02/10/2025 9:10 AM CDT Narrative [facility] - 02/10/2025 2:04 PM CDT External results verified in Extract by Kim Gregory on 02/10/2025 at 02:01 PM. us Ordering Provider External M.D. LAB BLOOD ADD-ON Final Result Performing Organization Address City/[facility]/ZIP Co de Phone Number [facility] [address] [place] [address], [facility] [phone] documented in this encounter Visit Diagnoses Not on filedocumented in this encounter Additional Health Concerns Assessment Noted Time PHQ-9 Depression Total Score: 0 05/30/20 17 9:36 AM INGOT SUPERVISOR documented as of this encounter Care Teams Office Machine Punch Operator Relationship Specialty Start Date End Date Elsewhere, Pcp PCP - General Internal Medicine 04/12/22 documented as of this encounter
[2025-03-23 12:42] VITALS: BP 132/72; PULSE 70; RESP 18; TEMP 36.7; O2SAT 95; BMI 35.8
--- NOTE | 2025-03-23 13:03 | ED.GENADULT ---
HPI - General Adult General Chief complaint: Extremity Pain/Injury, Lower Stated complaint: weakness Time Seen by Provider: 03/23/25 12:49 Source: patient Mode of arrival: EMS Limitations: no limitations History of Present Illness HPI narrative: 74-year-old female coming in today after she fell post exercise this morning. Patient states that she was checking out after exercise when her right leg this can and gave out under her. She was able to get to the wall where she has sunken down to the floor. She did not fall. Did not hit her head or lose consciousness. She states that the sensation of not having strength in her leg lasted about 10 seconds. She states that now she feels fine but feels nervous. She denies any weakness right now. States that her ankle feels a little sore on that side. EMS was called to the [facility] and brought her in. This has never happened to her before. Related Data Home Medications ?Medication ?Instructions ?Recorded ?Confirmed acetaminophen 500 mg capsule 500 mg PO Q6H PRN 01/24/22 02/17/25 divalproex 250 mg tablet,delayed 1,000 mg PO .hs 01/24/22 02/17/25 release (Depakote) buspirone 10 mg tablet 10 mg PO BID 12/04/22 02/17/25 quetiapine 200 mg tablet 200 mg PO BID 08/27/23 02/17/25 ketoconazole 2 % shampoo topical 10/23/24 02/17/25 Previous Rx's ?Medication ?Instructions ?Recorded polyethylene glycol 3350 17 17 g PO BID #1,020 grams 12/29/24 gram/dose oral powder atorvastatin 10 mg tablet 10 mg PO .Bedtime #90 tabs 01/01/25 levothyroxine 50 mcg tablet 50 mcg PO DAILY #90 tabs 01/01/25 oxybutynin chloride 5 mg 5 mg PO DAILY #90 tabs 01/01/25 tablet,extended release 24 hr famotidine 20 mg tablet (Pepcid) 20 mg PO QPM #90 tabs 01/20/25 amlodipine 5 mg tablet 5 mg PO DAILY #90 tabs 02/16/25 omeprazole 40 mg capsule,delayed 40 mg PO QAM #90 caps 02/16/25 release Allergies Allergy/AdvReac Type Severity Reaction Status Date / Time No Known Allergies Allergy Verified 02/17/25 09:02 Review of Systems Status of ROS: Reports: 10 or more systems reviewed and unremarkable except as noted in History and below [facility] Surgical History History of squamous cell carcinoma ?Z85.89 - Personal history of malignant neoplasm of other organs and systems (ICD-10) History of repair of rectocele ?Z98.890 - Other specified postprocedural states (ICD-10) Family History Father Heart disease Pancreatic cancer Depression Sister Breast cancer Bipolar 1 disorder Brother Depression Social History What is your current living situation?: I presently have a place to live Problems where you live: no known problems In the past 12 months, utilities in danger of being shut off: no In past 12 months, lack of transportation kept you from medical appts, meetings, work, or getting things needed for daily living: no In the past 12 mos, have been you worried that your food would run out before you had money to buy more?: never true In the past 12 mos, the food you bought just didn't last and you didn't have money to buy more?: never true Smoking Status: Never smoker Do you use any of these nicotine containing products: None How often do you have a drink containing alcohol: never AUDIT-C Alcohol total score: 0 How often does anyone, including family, friends and others, physically hurt you: never How often does anyone, including family, friends and others, insult or talk down to you: never How often does anyone, including family, friends and others, threaten you with harm: never How often does anyone, including family, friends and others, scream or curse at you: never Exam Narrative: Exam Narrative: Well-nourished well-developed patient in no acute distress. Alert and oriented. Answers questions appropriately. Mood and affect are appropriate. Thoughts are goal oriented and rational. No tangential or magical thinking noted. Patient speaks in full sentences without needing to catch her breath. No word-finding difficulty. No confusion. HEENT: Normocephalic atraumatic. Pupils are equally round reactive to light. Extraocular muscles are intact. Conjunctivae are moist without any icterus noted. Moist mucous membranes. Normal facial symmetry. Cardiovascular: Heart is regular rate and rhythm S1 and S2 are present without any murmurs. Lungs: Clear to auscultation bilaterally no wheezes rhonchi or rales are appreciated. Patient takes deep breaths without any discomfort. Extremities: Bilateral lower extremities are without edema. Normal DP and PT pulses. Ankle has normal appearance. No swelling. No tenderness to palpation. Full range of motion. Knee and hip exams on the right side are entirely normal. Skin: Well perfused without any obvious rashes. Strength is 5/5 of the upper and lower extremities, both distal and proximal muscle groups. Reflexes are 2+ and symmetric at the knees. Romberg sign is negative. Cranial nerves 3-12 are normal. [id number] is normal. Sqao-pt-[id number] is normal. There is no nystagmus either horizontally or vertically. Gait is normal. There is no pronator drift. Hand utility lineman is normal and symmetric. Const: Vital Signs, click to edit/add: Vital Signs - 24 hr 03/23/25 12:42 Temperature 98.1 F Pulse Rate [Pulse Oximeter] 70 Respiratory Rate 18 Blood Pressure [Ri ght Upper Arm] 132/72 Pulse Oximetry 95 Oxygen Delivery Me thod Room Air Course Vital Signs Vital signs: Initial Vital Signs Temperature 98.1 F 03/23/25 12:42 Temperature Source Temporal Artery Scan 03/23/25 12:42 Pulse Rate 70 03/23/25 12:42 Respiratory Rate 18 03/23/25 12:42 Blood Pressure 132/72 03/23/25 12:42 Blood Pressure Mean 92 03/23/25 12:42 Blood Pressure Position Sitting 03/23/25 12:42 Pulse Oximetry 95 03/23/25 12:42 Oxygen Delivery Method Room Air 03/23/25 12:42 Vital Signs Temperature 98.1 F 03/23/25 12:42 Pulse Rate 70 03/23/25 12:42 Respiratory Rate 18 03/23/25 12:42 Blood Pressure 132/72 03/23/25 12:42 Pulse Oximetry 95 03/23/25 12:42 Oxygen Delivery Method Room Air 03/23/25 12:42 Temperature 98.1 F 03/23/25 12:42 Pulse Rate 70 03/23/25 12:42 Respiratory Rate 18 03/23/25 12:42 Blood Pressure 132/72 03/23/25 12:42 Pulse Oximetry 95 03/23/25 12:42 Oxygen Delivery Method Room Air 03/23/25 12:42 Medical Decision Making MDM Narrative Medical decision making narrative: 74-year-old female presenting after she had momentary weakness of the right lower extremity and gently fell to the ground. Patient felt that the episode lasted about 10 seconds and she has had a complete recovery. We discussed the possibility of a TIA although this would be an unusual presentation. We discussed the possibility of a pinched nerve in her back again would be an unusual presentation given her lack of pain. We discussed reasons to return for re-evaluation. Discharge Plan Discharge Clinical Impression: Fall Patient Disposition: Home, Self-Care Condition: Stable Additional Instructions: Your examination today was unremarkable. Okay to return to normal daily physical activity without restrictions. Return to the emergency department if this occurs again or if you have other neurologic deficits that are concerning. Prescriptions: No Action divalproex [Depakote] 250 mg tablet,delayed release (DR/EC) 1,000 mg PO .hs acetaminophen 500 mg capsule 500 mg PO Q6H PRN buspirone 10 mg tablet 10 mg PO BID quetiapine 200 mg tablet 200 mg PO BID ketoconazole 2 % shampoo topical levothyroxine 50 mcg tablet 50 mcg PO DAILY Qty: 90 3RF atorvastatin 10 mg tablet 10 mg PO .Bedtime Qty: 90 3RF oxybutynin chloride 5 mg tablet extended release 24hr 5 mg PO DAILY Qty: 90 3RF polyethylene glycol 3350 17 gram/dose powder 17 g PO BID Qty: 1020 11RF famotidine [Pepcid] 20 mg tablet 20 mg PO QPM Qty: 90 3RF omeprazole 40 mg capsule,delayed release(DR/EC) 40 mg PO QAM Qty: 90 3RF amlodipine 5 mg tablet 5 mg PO DAILY Qty: 90 0RF Follow Up/Referrals: Skylar Naranjo MD [Primary Care Provider, Internal Medicine] Stand Alone Forms: [facility] Info Instructions
== END 2025-03-23 13:27 | disposition home or self-care (01) ==
PROVIDERS: Emergency Provider Family Medicine; PCP Internal Medicine
DX: R53.1 Weakness (principal); W19.XXXA Unspecified fall, initial encounter
CPT/HCPCS: 99283; 99284